=== PATIENT | female | born 1950 | race Caucasian/White ===

== ENCOUNTER 2018-02-05 07:50 | Emergency (ER) | payer MEDICARE, MEDICAID ==
[~2018-02-05] VITALS: Wt 81.6 kg
[~2018-02-05 07:50] MED LIST: ANTIVERT25 MG PO; BACTRIM DS 8001 TA1 PO; CIPROFLOXACIN500 MG PO; CYCLOBENZAPRINE10 MG PO; ELAVIL75 MG; INSULIN-HUMA100 U/ML SC; LISINOPRIL10 MG PO; LISINOPRIL5 MG PO; LOSARTAN POTASS50 MG PO; NAPROSYN500 MG PO; PERCOCET 325 MG1 TA7 PO; PROTONIX40 MG PO; PYRIDIUM200 MG PO; ZOFRAN ODT4 MG PO
[2018-02-05] MEDS ORDERED: PREDNISONE20 M1 PO (08:25)
== END 2018-02-05 08:36 | disposition home or self-care (01) ==
LOC: ED 07:50
DX: L25.9 Unspecified contact dermatitis, unspecified cause (principal); E11.9 Type 2 diabetes mellitus without complications; Z90.49 Acquired absence of other specified parts of digestive tract; Z79.899 Other long term (current) drug therapy

== ENCOUNTER 2019-05-15 11:53 | Inpatient (IN) | payer MEDICARE, MEDICAID ==
[~2019-05-15] VITALS: Ht 162.5 cm; Wt 89.2 kg
[~2019-05-15 11:53] MED LIST changes: +PREDNISONE20 M1 PO
[2019-05-15 11:54] VITALS: BP 152/66
[2019-05-15 12:21] LABS: BASO % 0.2 % (0.0-1.0); HEMATOCRIT 39.6 % (37.0-47.0); HEMOGLOBIN 13.2 g/dl (12.0-16.0); LYMPH # 1.9 10*3/uL (1.3-4.4); LYMPH % 22.9 % (27.0-41.0); MEAN CELL VOLUME 84.1 fl (81.0-99.0); MEAN CORPUSCULAR HGB CONC 33.3 g/dl (33.0-37.0); MEAN PLATELET VOLUME 9.3 fl (9.6-12.3); MONO # 0.5 10*3/uL (0.1-1.0); MONO % 6.4 % (3.0-9.0); NEUT # 5.8 10*3/uL (2.3-7.9); PLATELET COUNT AUTOMATED 247 10*3/uL (130-400); RED BLOOD COUNT 4.71 10*6/uL (4.10-5.10); RED CELL DISTRI WIDTH 13.8 % (0-14.5); WHITE BLOOD COUNT 8.3 10*3/uL (4.8-10.8)
[2019-05-15 12:35] LABS: ACT PARTIAL THROMBO TIME 26.1 SECONDS (20.0-32.1); INTERNATIONAL NORM RATIO 0.9 (2.0-3.5)
[2019-05-15 12:40] LABS: ALBUMIN 3.6 gm/dl (3.1-4.5); ALKALINE PHOSPHATASE 110 U/L (45-117); BUN 18 mg/dl (7-24); CHLORIDE 105 mmol/L (98-107); CREATININE 1.02 mg/dL (0.55-1.02); POTASSIUM 4.8 mmol/L (3.5-5.1); SGOT/AST 37 IU/L (3-35); SGPT/ALT 40 U/L (12-78); SODIUM 136 mmol/L (136-145); TOTAL PROTEIN 7.4 gm/dL (6.4-8.2)
[2019-05-15 12:42] LABS: TROPONIN I < 0.015 ng/ml (<0.045)
[2019-05-15 16:19] VITALS: BP 122/57
--- NOTE | 2019-05-15 17:15 | NUR ---
BEDSIDE REPORT GIVEN TO GALLITO ORANTES AT THIS TIME. NO PATIENT STATUS CHANGE.
[2019-05-15] MEDS ORDERED: GOOD NEIGHBOR M25 MG PO (17:29)
[2019-05-15] MEDS ORDERED: PROZAC20 MG PO (17:30)
[2019-05-15] MEDS ORDERED: NEURONTIN300 MG PO (17:31)
[2019-05-15] MEDS ORDERED: OMEPRAZOLE MAGN20 MG PO (17:31)
[2019-05-15] MEDS ORDERED: LANTUS SOL100 UNIT/1 SQ ×2 (17:32)
--- NOTE | 2019-05-15 17:33 | NUR ---
CCA 69, admitted to 5E, under the services of ARCHANA Hackett DO with a diagnosis of SYNCOPE, CHEST PAIN. Chief complaint is SYNCOPE. Patient arrived via bed from ER. Monitor applied. Initial assessment completed. Vital signs taken and recorded. ARCHANA HACKETT DO notified of admission to the unit. Orders received. See assessment for past medical history, medications and allergies. Patient and/or family oriented to unit. [address] visitation policy reviewed. Clothing/patient valuable form completed. GALLITO HAYDEN
--- NOTE | 2019-05-15 17:34 | NUR ---
MEDS REVIEWED PER POLICY.
--- NOTE | 2019-05-15 17:47 | NUR ---
2 WOUND PHOTOS OBTAINED PER POLICY.
--- NOTE | 2019-05-15 17:59 | NUR ---
NOTIFIED REGARDING SKIN IMPAIRMENTS.
--- NOTE | 2019-05-15 18:40 | NUR ---
ORTHOS PERFORMED PER ORDER. LAYING BP 133/56. PULSE 87. SITTING BP 149/63. PULSE 89. STANDING BP 98/50. PULSE 89. PT SYMPTOMATIC.
--- NOTE | 2019-05-15 18:44 | NUR ---
NOTIFIED REGARDING POSITIVE ORTHOS
[2019-05-15 20:00] VITALS: BP 133/49
--- NOTE | 2019-05-15 22:00 | NUR ---
PRN NORCO ADMINISTERED PRESCRIBED FOR PT C/O HEADACHE RATED A 5/10 ON THE PAIN SCALE. WILL CONTINUE TO MONITOR AND REASSESS. NO OTHER COMPLAINTS AT THIS TIME. CALL LIGHT IN REACH.
--- NOTE | 2019-05-15 22:01 | NUR ---
FLU VACCINE ADMINISTERED.
--- NOTE | 2019-05-15 23:00 | NUR ---
PT STATES THAT THE NORCO WAS EFFECTIVE. WILL CONTINUE TO MONITOR.
[2019-05-16] VITALS: BP 134/64
[2019-05-16 00:28] LABS: BILIRUBIN NEGATIVE (NEGATIVE); BLOOD NEGATIVE (NEGATIVE); CLARITY CLEAR (CLEAR); COLOR YELLOW (YELLOW); GLUCOSE 2+ (NEGATIVE); KETONE NEGATIVE (NEGATIVE); LEUKO ESTERASE TRACE (NEGATIVE); NITRITE NEGATIVE (NEGATIVE); PH 5.5 (5.0-9.0); SPECIFIC GRAVITY 1.025 (1.005-1.030); UROBILINOGEN 0.2 E.U./dl (0.2-1.0)
--- NOTE | 2019-05-16 01:00 | NUR ---
24 HOUR CHART CHECK COMPLETE.
[2019-05-16 01:14] LABS: BACTERIA TRACE
--- NOTE | 2019-05-16 02:04 | NUR ---
PRN NORCO ADMINISTERED PRESCRIBED FOR PT C/O "RT SIDED SHOULDER PAIN". PATIENT REFUSES ANY CHEST PAIN OR SOB ASSOCIATED WITH THE PAIN AND STATES THAT IT IS "PROBABLY HER ROTATOR CUFF". WILL CONTINUE TO MONITOR AND REASSESS. CALL LIGHT IN REACH.
--- NOTE | 2019-05-16 02:42 | NUR ---
PT STATES THAT THE PAIN "IS BETTER NOW" AFTER NORCO ADMINISTRATION. WILL CONTINUE TO MONITOR.
--- NOTE | 2019-05-16 05:12 | NUR ---
SAÚL PEREYRA [id number] Please refer to the physician's history and physical for past medical history, comorbid conditions, and allergies. Diagnosis: SYNCOPE HEAD INJURY CHEST PAIN Estevan Score: 17,AT RISK WOUND DESCRIPTIONS: Wound Number: 1 Location of the wound: left elbow Type of wound: scab Thickness: Partial Size: 1.1cm x 0.5cm x <0.1cm Tunneling: none Undermining: none Sinus Tract: none Presence of Exudate: none Amount: None Color: Red, brown Odor: None Periwound Skin Appearance: Normal Wound edges: approximated Pain (associated with wound): none at time of assessment How does patient state this happened? pt stated she fell yesterday and she will care for these areas when she is discharged and doesn't want to follow up in the outpatient center Wound Number: 2 Location of the wound: right elbow Type of wound: skin tear Thickness: Partial Size: 2.8cm x 0.6cm x 0.1cm Tunneling: none Undermining: none Sinus Tract: none Presence of Exudate: Serous Amount: Light Color: Red Odor: None Periwound Skin Appearance: Normal Wound edges: approximated Pain (associated with wound): none at time of assessment How does patient state this happened? pt stated she fell yesterday and she will care for these areas when she is discharged and doesn't want to follow up in the outpatient center Surface the patient is resting on: Position Pro SKIN PREVENTION RECOMMENDATION: 1. Pressure redistribution support surface as appropriate 2. Elevate heels 3. Remove boots/TEDS every shift and reapply 4. Head of bed 30 degrees as tolerated 5. Assess nutrition and hydration 6. Manage moisture 7. Avoid the use of containment devices while in bed 8. Use absorptive products on surfaces limit layers of linens on bed 9. Turn and reposition every 1-2 hours in bed and every 1 hour in chair as tolerated 10. Weight shifts every 15 minutes while up in chair 11. Offloading with pillows or device to keep heels elevated off bed 12. Monitor skin at least every shift 13. Inspect under medical devices twice a day WOUND TREATMENT RECOMMENDATIONS: Clarify skin tear guidelines: Cleanse left and right elbow with nss and apply sureprep around the wound hydrogel to wound bed and cover with optifoam gentle Q2days and prn.
[2019-05-16 06:41] LABS: BASO % 0.1 % (0.0-1.0); EOS % 0.1 % (1.0-4.0); HEMATOCRIT 35.7 % (37.0-47.0); HEMOGLOBIN 11.5 g/dl (12.0-16.0); LYMPH # 2.6 10*3/uL (1.3-4.4); LYMPH % 34.8 % (27.0-41.0); MEAN CORPUSCULAR HGB 27.7 pg (27.0-31.0); MEAN CORPUSCULAR HGB CONC 32.2 g/dl (33.0-37.0); MEAN PLATELET VOLUME 9.1 fl (9.6-12.3); MONO # 0.5 10*3/uL (0.1-1.0); MONO % 6.8 % (3.0-9.0); NEUT # 4.2 10*3/uL (2.3-7.9); NEUT % 57.8 % (47.0-73.0); PLATELET COUNT AUTOMATED 217 10*3/uL (130-400); RED BLOOD COUNT 4.15 10*6/uL (4.10-5.10); RED CELL DISTRI WIDTH 14.1 % (0-14.5); WHITE BLOOD COUNT 7.3 10*3/uL (4.8-10.8)
[2019-05-16 06:57] LABS: BUN 17 mg/dl (7-24); CHLORIDE 108 mmol/L (98-107); CHOLESTEROL 200 mg/dL (<200); CREATININE 1.05 mg/dL (0.55-1.02); PHOSPHOROUS 4.8 mg/dL (2.5-4.9); POTASSIUM 3.9 mmol/L (3.5-5.1); SODIUM 141 mmol/L (136-145); TRIGLYCERIDES 323 mg/dl (<150); VLDL CHOLESTEROL 65 mg/dL (6-40)
[2019-05-16 07:11] LABS: HDL CHOLESTEROL 25 mg/dl (40-60); LDL CHOLESTEROL 110 mg/dL (9-159)
[2019-05-16 08:00] VITALS: BP 128/52
--- NOTE | 2019-05-16 09:11 | NUR ---
ORTHOS PERFORMED PER ORDER. LAYING BP 128/52. HR 72. SITTING BP 132/62. HR 85. STANDING BP 110/51. HR 85. PT C/O DIZZINESS UPON STANDING. WILL NOTIFY PHYSICIAN.
--- NOTE | 2019-05-16 09:34 | NUR ---
PT MEDICATED WITH NORCO PER PRN ORDER FOR C/O BACK PAIN. CHRONIC BACK PAIN PER PT. WILL MONITOR EFFECTIVENESS.
--- NOTE | 2019-05-16 10:03 | NUR ---
Dr. Westbrook notified of wound care recommendations.
--- NOTE | 2019-05-16 10:10 | NUR ---
Occupational THerapy evaluation offered this date but patient declined stating that she is independent in all ADLs and functional mobility and did not need any therapy. Discharge OT referral. Thank you. Carley Ignacio OTR/Helder
--- NOTE | 2019-05-16 10:39 | NUR ---
PHYSICAL THERAPY Physical therapy referral received. Pt reports she is independent with ambulation in room and has no concerns upon going home. PT services will be discharged at this time. Thank you Yanna Rodriguez, PT, DPT
--- NOTE | 2019-05-16 10:44 | NUR ---
BRIGITTE RELIEVING PAIN PER PT.
--- NOTE | 2019-05-16 10:45 | NUR ---
DAUGHTER AT BEDSIDE.
[2019-05-16 12:00] VITALS: BP 111/74
--- NOTE | 2019-05-16 13:12 | NUR ---
Flap Curer in to talk to patient. Patient states lives at HOME with BROTHER. There are FEW steps in the home. Physician: IGNACIO Pharmacy: [facility] Home health services: NONE Patient's level of ADLs: INDEPENDENT Patient has working utilities: YES DME: NONE Follow-up physician's appointment after d/c: WILL BE MADE BY HOSPITALIST NURSE DIRECTOR ON DISCHARGE Does patient want to access PORTAL?: NO Discharge plan PT LIVES AT HOME WITH HER BROTHER. DENIES SHE WILL HAVE NEEDS ON DISCHARGE. STATES SHE WILL RETURN HOME. WILL CONTINUE TO FOLLOW. WILL HAVE A RIDE HOME PER PT.. GALE SILVA
[2019-05-16 16:00] VITALS: BP 121/52
[2019-05-16 20:00] VITALS: BP 145/55
[2019-05-17] VITALS: BP 155/61
[2019-05-17 07:00] LABS: CREATININE 1.09 mg/dL (0.55-1.02); POTASSIUM 4.5 mmol/L (3.5-5.1)
--- NOTE | 2019-05-17 08:28 | NUR ---
Dr. Westbrook notified of wound care recommendations.
--- NOTE | 2019-05-17 08:57 | NUR ---
CHIQUITA spoke with the patient and family about wanting a blood pressure cuff and a glucometer. CHIQUITA reached out to Pharmacy and spoke with Dawson. He stated if the patient was ordered a diabetic education they would be able to provide one to her with not cost to the patient. Dawson also stated that a blood pressure kit would approximately be $12.00. CHIQUITA informed the patient of this. CHIQUITA reached out to RN Hospitalist Coordinator to see if a diabetic education could be ordered. CHIQUITA also notified immigration case manager Ambar. -CHIQUITA Ruth
--- NOTE | 2019-05-17 10:00 | NUR ---
Physicians notified face to face encounter of orthostatic blood pressures. See vitals. See new orders.
--- NOTE | 2019-05-17 10:50 | NUR ---
Patient was educated on how to test her blood glucose. Patient followed steps as directed and was educated on importance of monitoring glucose levels.
[2019-05-17] MEDS ORDERED: Humalog SQ (11:15)
[2019-05-17] MEDS ORDERED: GLUCOPHAGE500 MG PO (11:15)
[2019-05-17] MEDS ORDERED: VITAMIN D32000 UNI1 PO (11:15)
[2019-05-17] MEDS ORDERED: ATORVASTATIN CA20 M1 PO (11:15)
--- NOTE | 2019-05-17 11:57 | NUR ---
Nutritional Support Services Note: Instructed pt and pts daughter on 1800cal diabetic diet. Diet copy given to pt. All questions were answered. Encouraged three meals daily and a night snack. Encouraged healhty eating and proper portion sizes. Encouraged her to attend the outpatient diabetes classes. Pts daughter is also a diabetic. Encouraged follow up if needed. Jazmyn Torres Rdn Ld
[2019-05-17 12:00] VITALS: BP 148/86
--- NOTE | 2019-05-17 14:50 | NUR ---
Discharge instructions reviewed with patient/family. Patient receptive and verbalizes understanding. Follow-up care arranged. Written instructions given to patient/family. Patient was educated on insulin and the sliding scale. She was also educated on how to monitor her blood sugar and follow up visit with Dr. Hawthorne. Patient ambulated from unit with family member and all personal belongings accounted for. TEJA COLLINS
== END 2019-05-17 14:50 | disposition home or self-care (01) | DRG 312 ==
LOC: ED 11:53 → EDHOLD 16:34 → 5E 16:34
PROVIDERS: Emergency Medicine; Student in an Organized Health Care Education/Training Program; ADMIT Family Medicine
DX: I95.1 Orthostatic hypotension (principal); E86.0 Dehydration; S09.90XA Unspecified injury of head, initial encounter; F41.9 Anxiety disorder, unspecified; I10 Essential (primary) hypertension; E11.65 Type 2 diabetes mellitus with hyperglycemia; E83.41 Hypermagnesemia; D72.810 Lymphocytopenia; K21.9 Gastro-esophageal reflux disease without esophagitis; E11.42 Type 2 diabetes mellitus with diabetic polyneuropathy; Z85.42 Personal history of malignant neoplasm of other parts of uterus; Z90.710 Acquired absence of both cervix and uterus; Z90.49 Acquired absence of other specified parts of digestive tract; Z79.4 Long term (current) use of insulin; Z79.899 Other long term (current) drug therapy; Z83.3 Family history of diabetes mellitus; Z82.49 Family history of ischemic heart disease and other diseases of the circulatory system; W18.39XA Other fall on same level, initial encounter; Y93.89 Activity, other specified; Y92.090 Kitchen in other non-institutional residence as the place of occurrence of the external cause; Y99.8 Other external cause status

== ENCOUNTER → 2019-08-20 | Outpatient (CLI) | payer MEDICARE, MEDICAID ==
[~2019-08-20] MED LIST changes: +ATORVASTATIN CA20 M1 PO; +COZAAR50 M1 PO; +GLUCOPHAGE500 MG PO; +GOOD NEIGHBOR M25 MG PO; +Humalog SQ; +LANTUS SOL100 UNIT/1 SQ; +NEURONTIN300 MG PO; +OMEPRAZOLE MAGN20 MG PO; +PROZAC20 MG PO; +VIBRA-TAB100 MG PO; +VITAMIN D32000 UNI1 PO
--- NOTE | 2019-08-20 07:05 | NUR ---
INFORMED CONSENT SIGNED FOR LEXISCAN STRESS TEST WITH DR. RIZZO. RESTING EKG NSR, HR 76, BP 126/56. PULSE OX 99% AND LUNGS CLEAR. COMPLETED ONE MINUTE OF LEXISCAN PROTOCOL RECEIVING LEXISCAN 0.4MG OVER 10 SECONDS. NO ARRHYTHMIAS OR ST CHANGES NOTED. PT HAD NO C/O. LAST RECOVERY HR 89, BP 108/40. WAITING NUCLEAR SCANNING IN STABLE CONDITION.
== END | disposition home or self-care (01) ==
LOC: CARD 00:23
DX: R07.9 Chest pain, unspecified (principal)

== ENCOUNTER 2021-06-30 05:38 | Inpatient (IN) | payer MEDICARE, MEDICAID ==
[~2021-06-30] VITALS: Ht 165.1 cm; Wt 91.9 kg
[2021-06-30 05:38] VITALS: BP 158/70
[2021-06-30 06:28] LABS: BASO % 0.2 % (0.0-1.0); HEMATOCRIT 36.7 % (37.0-47.0); LYMPH # 1.9 10*3/uL (1.3-4.4); LYMPH % 30.2 % (27.0-41.0); MEAN CELL VOLUME 96.8 fl (81.0-99.0); MEAN CORPUSCULAR HGB 31.9 pg (27.0-31.0); MONO # 0.5 10*3/uL (0.1-1.0); MONO % 7.3 % (3.0-9.0); NEUT # 3.9 10*3/uL (2.3-7.9); NEUT % 61.7 % (47.0-73.0); PLATELET COUNT AUTOMATED 227 10*3/uL (130-400); RED BLOOD COUNT 3.79 10*6/uL (4.10-5.10); RED CELL DISTRI WIDTH 13.4 % (0-14.5); WHITE BLOOD COUNT 6.3 10*3/uL (4.8-10.8)
[2021-06-30 06:39] LABS: ACT PARTIAL THROMBO TIME 26.3 SECONDS (20.0-32.1); INTERNATIONAL NORM RATIO 0.9 (2.0-3.5)
[2021-06-30 06:42] LABS: ALBUMIN 3.1 gm/dl (3.1-4.5); ALKALINE PHOSPHATASE 87 U/L (45-117); BUN 16 mg/dl (7-24); CHLORIDE 110 mmol/L (98-107); CREATININE 0.95 mg/dL (0.55-1.02); POTASSIUM 3.8 mmol/L (3.5-5.1); SGOT/AST 25 IU/L (3-35); SGPT/ALT 28 U/L (12-78); SODIUM 141 mmol/L (136-145); TOTAL PROTEIN 6.7 gm/dL (6.4-8.2)
[2021-06-30 07:44] VITALS: BP 165/76
[2021-06-30] MEDS ORDERED: BASAG SOL SC (09:18)
[2021-06-30 12:00] VITALS: BP 188/82
[2021-06-30 17:57] VITALS: BP 193/71
[2021-06-30 19:39] VITALS: BP 182/74
[2021-06-30 20:00] VITALS: BP 180/78
[2021-07-01] VITALS: BP 157/82
[2021-07-01 05:49] LABS: ALBUMIN 2.9 gm/dl (3.1-4.5); ALKALINE PHOSPHATASE 82 U/L (45-117); BUN 18 mg/dl (7-24); CHLORIDE 109 mmol/L (98-107); CREATININE 1.06 mg/dL (0.55-1.02); POTASSIUM 4.3 mmol/L (3.5-5.1); SGOT/AST 19 IU/L (3-35); SGPT/ALT 28 U/L (12-78); SODIUM 140 mmol/L (136-145); TOTAL PROTEIN 6.4 gm/dL (6.4-8.2)
[2021-07-01 06:14] LABS: BASO % 0.1 % (0.0-1.0); HEMATOCRIT 35.2 % (37.0-47.0); LYMPH # 1.4 10*3/uL (1.3-4.4); LYMPH % 15.1 % (27.0-41.0); MEAN CELL VOLUME 95.9 fl (81.0-99.0); MEAN CORPUSCULAR HGB 31.9 pg (27.0-31.0); MEAN CORPUSCULAR HGB CONC 33.2 g/dl (33.0-37.0); MEAN PLATELET VOLUME 9.5 fl (9.6-12.3); MONO # 0.6 10*3/uL (0.1-1.0); MONO % 7.1 % (3.0-9.0); NEUT % 76.9 % (47.0-73.0); PLATELET COUNT AUTOMATED 256 10*3/uL (130-400); RED BLOOD COUNT 3.67 10*6/uL (4.10-5.10); RED CELL DISTRI WIDTH 13.3 % (0-14.5); WHITE BLOOD COUNT 9.1 10*3/uL (4.8-10.8)
[2021-07-01 08:00] VITALS: BP 168/60
[2021-07-01] MEDS ORDERED: ZITHROMAX250 MG PO (11:55)
[2021-07-01] MEDS ORDERED: HUMALOG100 UNIT/1 SC (11:58)
[2021-07-01] MEDS ORDERED: CARAFATE1 G1 PO (12:34)
[2021-07-01] MEDS ORDERED: PROTONIX40 MG PO (12:34)
== END 2021-07-01 14:35 | disposition home or self-care (01) | DRG 871 ==
LOC: ED 05:38 → EDHOLD 08:20 → 4E 19:52
PROVIDERS: Emergency Medicine; Student in an Organized Health Care Education/Training Program; ADMIT Internal Medicine; ATTEND Internal Medicine
DX: A41.9 Sepsis, unspecified organism (principal); J18.9 Pneumonia, unspecified organism; E44.0 Moderate protein-calorie malnutrition; I13.0 Hypertensive heart and chronic kidney disease with heart failure and stage 1 through stage 4 chronic kidney disease, or unspecified chronic kidney disease; K21.9 Gastro-esophageal reflux disease without esophagitis; K29.70 Gastritis, unspecified, without bleeding; Z20.822 Contact with and (suspected) exposure to COVID-19; I16.0 Hypertensive urgency; E87.8 Other disorders of electrolyte and fluid balance, not elsewhere classified; E66.3 Overweight; N18.31 Chronic kidney disease, stage 3a; D72.810 Lymphocytopenia; C55 Malignant neoplasm of uterus, part unspecified; F41.9 Anxiety disorder, unspecified; E11.65 Type 2 diabetes mellitus with hyperglycemia; E11.42 Type 2 diabetes mellitus with diabetic polyneuropathy; Z79.4 Long term (current) use of insulin; Z90.49 Acquired absence of other specified parts of digestive tract; Z90.710 Acquired absence of both cervix and uterus; Z82.49 Family history of ischemic heart disease and other diseases of the circulatory system; Z83.3 Family history of diabetes mellitus; Z79.899 Other long term (current) drug therapy; Z68.34 Body mass index [BMI] 34.0-34.9, adult

== ENCOUNTER 2022-01-04 13:36 | Inpatient (IN) | payer MEDICARE, MEDICAID ==
[~2022-01-04] VITALS: Ht 152.4 cm; Wt 85.3 kg
[~2022-01-04 13:36] MED LIST changes: +ASPIRIN ADULT L81 M2 PO; +ATORVASTATIN CA80 M1 PO; +BASAG SOL SC; +CARAFATE1 G1 PO; +HUMALOG100 UNIT/1 SC; +LOPRESSOR25 MG PO; +ZITHROMAX250 MG PO
[2022-01-04 13:51] VITALS: BP 108/57
[2022-01-04 14:12] LABS: EOS % 0.2 % (1.0-4.0); HEMATOCRIT 28.5 % (37.0-47.0); LYMPH % 20.2 % (27.0-41.0); MEAN CELL VOLUME 86.1 fl (81.0-99.0); MEAN CORPUSCULAR HGB 27.8 pg (27.0-31.0); MEAN CORPUSCULAR HGB CONC 32.3 g/dl (33.0-37.0); MEAN PLATELET VOLUME 8.4 fl (9.6-12.3); MONO # 0.4 10*3/uL (0.1-1.0); MONO % 7.6 % (3.0-9.0); NEUT # 3.7 10*3/uL (2.3-7.9); NEUT % 71.6 % (47.0-73.0); PLATELET COUNT AUTOMATED 240 10*3/uL (130-400); RED BLOOD COUNT 3.31 10*6/uL (4.10-5.10); RED CELL DISTRI WIDTH 14.7 % (0-14.5); WHITE BLOOD COUNT 5.1 10*3/uL (4.8-10.8)
[2022-01-04 14:22] VITALS: BP 109/56
[2022-01-04 14:23] LABS: ACT PARTIAL THROMBO TIME 27.4 SECONDS (20.0-32.1)
[2022-01-04 14:28] LABS: CREATININE 2.1 mg/dL (0.55-1.02); POTASSIUM 4.2 mmol/L (3.5-5.1); TOTAL PROTEIN 7.1 gm/dL (6.4-8.2)
[2022-01-04 16:00] VITALS: BP 124/61
[2022-01-04 17:00] VITALS: BP 124/61
[2022-01-04 20:00] VITALS: BP 122/56
[2022-01-04] MEDS ORDERED: VITAMIN C500 M8 PO (20:44)
[2022-01-04] MEDS ORDERED: BUMETANIDE2 MG PO (20:44)
[2022-01-04] MEDS ORDERED: PLAVIX75 M1 PO (20:45)
[2022-01-04] MEDS ORDERED: COLACE100 MG PO (20:45)
[2022-01-04] MEDS ORDERED: IRON325 M3 PO (20:47)
[2022-01-04] MEDS ORDERED: HYDRALAZINE10 MG PO (20:47)
[2022-01-04] MEDS ORDERED: POTASSIUM99 M3 PO (20:48)
[2022-01-04] MEDS ORDERED: NATURE'S BLEND F1 MG PO (20:48)
[2022-01-04] MEDS ORDERED: BASAG SOL SQ (21:00)
[2022-01-04] MEDS ORDERED: LIPITOR40 MG PO (21:00)
[2022-01-05] VITALS: BP 124/54
[2022-01-05 02:20] LABS: BILIRUBIN Negative (Negative); BLOOD Negative (Negative); CLARITY Clear (Clear); COLOR Yellow (Yellow); GLUCOSE Negative (Negative); KETONE Negative (Negative); LEUKO ESTERASE 2+ (Negative); NITRITE Negative (Negative); UROBILINOGEN 0.2 E.U./dl (0.0-1.0)
[2022-01-05 02:40] LABS: EPITHELIAL CELLS 21-30; WBC 21-30 wbc/hpf (0-5); YEAST TRACE
[2022-01-05 05:58] LABS: CREATININE 2.2 mg/dL (0.55-1.02); TOTAL PROTEIN 6.4 gm/dL (6.4-8.2)
[2022-01-05 06:05] LABS: FREE T4 0.99 ng/dl (0.76-1.46); THYROID STIM HORMONE (HS) 3.12 uIU/ml (0.358-4.75)
[2022-01-05 06:31] LABS: BASO % 0.2 % (0.0-1.0); EOS % 0.2 % (1.0-4.0); HEMATOCRIT 25.5 % (37.0-47.0); LYMPH # 1.3 10*3/uL (1.3-4.4); LYMPH % 28.3 % (27.0-41.0); MEAN CELL VOLUME 88.2 fl (81.0-99.0); MEAN CORPUSCULAR HGB 28.4 pg (27.0-31.0); MEAN CORPUSCULAR HGB CONC 32.2 g/dl (33.0-37.0); MEAN PLATELET VOLUME 9.4 fl (9.6-12.3); MONO # 0.4 10*3/uL (0.1-1.0); MONO % 9.5 % (3.0-9.0); NEUT # 2.8 10*3/uL (2.3-7.9); NEUT % 61.4 % (47.0-73.0); PLATELET COUNT AUTOMATED 230 10*3/uL (130-400); RED BLOOD COUNT 2.89 10*6/uL (4.10-5.10); RED CELL DISTRI WIDTH 14.7 % (0-14.5); WHITE BLOOD COUNT 4.5 10*3/uL (4.8-10.8)
[2022-01-05 06:37] LABS: ACT PARTIAL THROMBO TIME 27.2 SECONDS (20.0-32.1)
[2022-01-05 08:00] VITALS: BP 120/53
[2022-01-05 12:00] VITALS: BP 120/80
[2022-01-05 16:20] VITALS: BP 100/46
[2022-01-05 20:00] VITALS: BP 110/50
[2022-01-06] VITALS (9 sets, daily range): BP systolic 85–138; BP diastolic 37–60
[2022-01-06 06:01] LABS: CREATININE 2.36 mg/dL (0.55-1.02); POTASSIUM 4.2 mmol/L (3.5-5.1); TOTAL PROTEIN 6.1 gm/dL (6.4-8.2)
[2022-01-06 06:04] LABS: BASO % 0.2 % (0.0-1.0); HEMATOCRIT 24.8 % (37.0-47.0); LYMPH # 1.3 10*3/uL (1.3-4.4); LYMPH % 28.2 % (27.0-41.0); MEAN CELL VOLUME 87.6 fl (81.0-99.0); MEAN CORPUSCULAR HGB 27.6 pg (27.0-31.0); MEAN CORPUSCULAR HGB CONC 31.5 g/dl (33.0-37.0); MONO # 0.5 10*3/uL (0.1-1.0); MONO % 10.2 % (3.0-9.0); NEUT # 2.8 10*3/uL (2.3-7.9); NEUT % 61.2 % (47.0-73.0); PLATELET COUNT AUTOMATED 223 10*3/uL (130-400); RED BLOOD COUNT 2.83 10*6/uL (4.10-5.10); RED CELL DISTRI WIDTH 14.8 % (0-14.5); WHITE BLOOD COUNT 4.6 10*3/uL (4.8-10.8)
[2022-01-07] VITALS: BP 105/64
[2022-01-07 06:30] LABS: BASO % 0.2 % (0.0-1.0); EOS % 0.2 % (1.0-4.0); HEMATOCRIT 26.6 % (37.0-47.0); LYMPH # 1.5 10*3/uL (1.3-4.4); MEAN CELL VOLUME 88.7 fl (81.0-99.0); MEAN CORPUSCULAR HGB 27.3 pg (27.0-31.0); MEAN CORPUSCULAR HGB CONC 30.8 g/dl (33.0-37.0); MEAN PLATELET VOLUME 9.1 fl (9.6-12.3); MONO # 0.5 10*3/uL (0.1-1.0); MONO % 8.8 % (3.0-9.0); NEUT # 3.2 10*3/uL (2.3-7.9); NEUT % 61.4 % (47.0-73.0); PLATELET COUNT AUTOMATED 259 10*3/uL (130-400); RED CELL DISTRI WIDTH 14.8 % (0-14.5); WHITE BLOOD COUNT 5.2 10*3/uL (4.8-10.8)
[2022-01-07 07:03] LABS: CREATININE 2.36 mg/dL (0.55-1.02)
[2022-01-07 08:00] VITALS: BP 125/55
[2022-01-07 12:00] VITALS: BP 116/53
[2022-01-07 16:00] VITALS: BP 129/65
[2022-01-07 20:00] VITALS: BP 116/62
[2022-01-08] VITALS: BP 115/60
[2022-01-08 06:32] VITALS: BP 120/52
[2022-01-08 06:41] LABS: BASO % 0.2 % (0.0-1.0); EOS % 0.2 % (1.0-4.0); HEMATOCRIT 24.7 % (37.0-47.0); LYMPH # 1.5 10*3/uL (1.3-4.4); LYMPH % 30.2 % (27.0-41.0); MEAN CORPUSCULAR HGB 27.5 pg (27.0-31.0); MEAN CORPUSCULAR HGB CONC 31.6 g/dl (33.0-37.0); MEAN PLATELET VOLUME 8.8 fl (9.6-12.3); MONO # 0.5 10*3/uL (0.1-1.0); MONO % 10.4 % (3.0-9.0); NEUT # 2.8 10*3/uL (2.3-7.9); NEUT % 58.8 % (47.0-73.0); PLATELET COUNT AUTOMATED 230 10*3/uL (130-400); RED BLOOD COUNT 2.84 10*6/uL (4.10-5.10); RED CELL DISTRI WIDTH 14.7 % (0-14.5); WHITE BLOOD COUNT 4.8 10*3/uL (4.8-10.8)
[2022-01-08 07:10] LABS: POTASSIUM 4.2 mmol/L (3.5-5.1)
[2022-01-08 07:13] LABS: CREATININE 2.2 mg/dL (0.55-1.02)
[2022-01-08 08:00] VITALS: BP 117/57
[2022-01-08 12:00] VITALS: BP 107/52
[2022-01-08] MEDS ORDERED: CARVEDILOL3.125 MG PO (12:02)
[2022-01-08] MEDS ORDERED: BUMETANIDE1 MG PO (12:02)
[2022-01-08] MEDS ORDERED: CEFUROXIME AXE500 MG PO (12:02)
[2022-01-08] MEDS ORDERED: VITAMIN D350 MC2 PO (12:02)
[2022-01-08 15:07] LABS: TB1 Ag VALUE 0.03 IU/mL (.)
== END 2022-01-08 12:21 | disposition home health service (06) | DRG 862 ==
LOC: ED 13:36 → 5E 15:36 → EDHOLD 15:36 → 5E 15:57
PROVIDERS: Emergency Medicine; Family Medicine; Internal Medicine; Internal Medicine Infectious Disease; ADMIT Internal Medicine; ATTEND Internal Medicine
PROC: 069 Lower Veins, Drainage (ICD-10-PCS; principal; 2022-01-06)
DX: T81.49XA Infection following a procedure, other surgical site, initial encounter (principal); N17.0 Acute kidney failure with tubular necrosis; L03.116 Cellulitis of left lower limb; S81.802A Unspecified open wound, left lower leg, initial encounter; I25.118 Atherosclerotic heart disease of native coronary artery with other forms of angina pectoris; D64.9 Anemia, unspecified; I25.5 Ischemic cardiomyopathy; N18.30 Chronic kidney disease, stage 3 unspecified; E11.22 Type 2 diabetes mellitus with diabetic chronic kidney disease; R55 Syncope and collapse; Z51.5 Encounter for palliative care; Y83.8 Other surgical procedures as the cause of abnormal reaction of the patient, or of later complication, without mention of misadventure at the time of the procedure; Z66 Do not resuscitate; E66.9 Obesity, unspecified; E87.8 Other disorders of electrolyte and fluid balance, not elsewhere classified; E83.41 Hypermagnesemia; B96.20 Unspecified Escherichia coli [E. coli] as the cause of diseases classified elsewhere; Z90.49 Acquired absence of other specified parts of digestive tract; Z79.4 Long term (current) use of insulin; Z95.1 Presence of aortocoronary bypass graft; Z90.710 Acquired absence of both cervix and uterus; Z79.82 Long term (current) use of aspirin; Z79.899 Other long term (current) drug therapy; Y92.89 Other specified places as the place of occurrence of the external cause; Z82.49 Family history of ischemic heart disease and other diseases of the circulatory system; Z68.35 Body mass index [BMI] 35.0-35.9, adult; I50.9 Heart failure, unspecified

== ENCOUNTER → 2022-01-18 | Outpatient (CLI) | payer MEDICARE, MEDICAID ==
[~2022-01-18] MED LIST changes: +BASAG SOL SQ; +BUMETANIDE1 MG PO; +BUMETANIDE2 MG PO; +CARVEDILOL3.125 MG PO; +CEFUROXIME AXE500 MG PO; +COLACE100 MG PO; +HYDRALAZINE10 MG PO; +IRON325 M3 PO; +LIPITOR40 MG PO; +NATURE'S BLEND F1 MG PO; +PLAVIX75 M1 PO; +POTASSIUM99 M3 PO; +VITAMIN C500 M8 PO; +VITAMIN D350 MC2 PO
== END | disposition home or self-care (01) ==
LOC: WOUNDCARE 01:36
PROVIDERS: ATTEND Surgery
DX: T81.89XA Other complications of procedures, not elsewhere classified, initial encounter (principal); M65.062 Abscess of tendon sheath, left lower leg; L03.116 Cellulitis of left lower limb; E11.9 Type 2 diabetes mellitus without complications; I25.10 Atherosclerotic heart disease of native coronary artery without angina pectoris; I25.2 Old myocardial infarction; I10 Essential (primary) hypertension; F41.9 Anxiety disorder, unspecified; Z90.710 Acquired absence of both cervix and uterus; Z90.49 Acquired absence of other specified parts of digestive tract; Z95.1 Presence of aortocoronary bypass graft; Z85.42 Personal history of malignant neoplasm of other parts of uterus; Y92.238 Other place in hospital as the place of occurrence of the external cause; Y83.8 Other surgical procedures as the cause of abnormal reaction of the patient, or of later complication, without mention of misadventure at the time of the procedure

== ENCOUNTER → 2022-01-25 | Outpatient (CLI) | payer MEDICARE, MEDICAID | LOC: WOUNDCARE 01:42 | PROVIDERS: ATTEND Surgery | DX: T81.89XD Other complications of procedures, not elsewhere classified, subsequent encounter (principal); M65.062 Abscess of tendon sheath, left lower leg; L03.116 Cellulitis of left lower limb; E11.9 Type 2 diabetes mellitus without complications; I25.10 Atherosclerotic heart disease of native coronary artery without angina pectoris; I25.2 Old myocardial infarction; I10 Essential (primary) hypertension; F41.9 Anxiety disorder, unspecified; Z90.710 Acquired absence of both cervix and uterus; Z90.49 Acquired absence of other specified parts of digestive tract; Z95.1 Presence of aortocoronary bypass graft; Z85.42 Personal history of malignant neoplasm of other parts of uterus; Y83.8 Other surgical procedures as the cause of abnormal reaction of the patient, or of later complication, without mention of misadventure at the time of the procedure ==

== ENCOUNTER → 2022-02-01 | Outpatient (CLI) | payer MEDICARE, MEDICAID | LOC: WOUNDCARE 03:17 | PROVIDERS: ATTEND Surgery | DX: T81.89XA Other complications of procedures, not elsewhere classified, initial encounter (principal); L03.116 Cellulitis of left lower limb; M65.062 Abscess of tendon sheath, left lower leg; I25.10 Atherosclerotic heart disease of native coronary artery without angina pectoris; I25.2 Old myocardial infarction; I10 Essential (primary) hypertension; F41.9 Anxiety disorder, unspecified; Z90.710 Acquired absence of both cervix and uterus; Z90.49 Acquired absence of other specified parts of digestive tract; Z95.1 Presence of aortocoronary bypass graft; Z85.42 Personal history of malignant neoplasm of other parts of uterus; Y92.238 Other place in hospital as the place of occurrence of the external cause; Y83.8 Other surgical procedures as the cause of abnormal reaction of the patient, or of later complication, without mention of misadventure at the time of the procedure ==

== ENCOUNTER 2022-02-09 03:31 | Emergency (ER) | payer MEDICARE, MEDICAID ==
[2022-02-09 03:47] LABS: BASO % 0.5 % (0.0-1.0); HEMATOCRIT 30.1 % (37.0-47.0); LYMPH # 0.9 10*3/uL (1.3-4.4); LYMPH % 13.6 % (27.0-41.0); MEAN CELL VOLUME 90.9 fl (81.0-99.0); MEAN CORPUSCULAR HGB 28.4 pg (27.0-31.0); MEAN CORPUSCULAR HGB CONC 31.2 g/dl (33.0-37.0); MEAN PLATELET VOLUME 8.3 fl (9.6-12.3); MONO # 0.3 10*3/uL (0.1-1.0); MONO % 5.3 % (3.0-9.0); NEUT % 80.1 % (47.0-73.0); PLATELET COUNT AUTOMATED 226 10*3/uL (130-400); RED BLOOD COUNT 3.31 10*6/uL (4.10-5.10); RED CELL DISTRI WIDTH 14.2 % (0-14.5); WHITE BLOOD COUNT 6.2 10*3/uL (4.8-10.8)
[2022-02-09 04:04] LABS: CREATININE 1.66 mg/dL (0.55-1.02); POTASSIUM 3.8 mmol/L (3.5-5.1); TOTAL PROTEIN 6.5 gm/dL (6.4-8.2)
== END 2022-02-09 06:49 | disposition home or self-care (01) ==
LOC: ED 03:31
PROVIDERS: Internal Medicine
DX: N17.9 Acute kidney failure, unspecified (principal); I95.9 Hypotension, unspecified; D64.9 Anemia, unspecified; Z90.49 Acquired absence of other specified parts of digestive tract; Z79.899 Other long term (current) drug therapy; Z79.82 Long term (current) use of aspirin

== ENCOUNTER → 2022-02-15 | Outpatient (CLI) | payer MEDICARE, MEDICAID | END | disposition home or self-care (01) | LOC: WOUNDCARE 05:35 | PROVIDERS: ATTEND Surgery | DX: T81.89XD Other complications of procedures, not elsewhere classified, subsequent encounter (principal); M65.062 Abscess of tendon sheath, left lower leg; L03.116 Cellulitis of left lower limb; I25.10 Atherosclerotic heart disease of native coronary artery without angina pectoris; I10 Essential (primary) hypertension; I25.2 Old myocardial infarction; F41.9 Anxiety disorder, unspecified; Z90.710 Acquired absence of both cervix and uterus; Z90.49 Acquired absence of other specified parts of digestive tract; Z95.1 Presence of aortocoronary bypass graft; Z85.42 Personal history of malignant neoplasm of other parts of uterus; Y83.8 Other surgical procedures as the cause of abnormal reaction of the patient, or of later complication, without mention of misadventure at the time of the procedure ==

== ENCOUNTER → 2022-05-03 | Day surgery (SDC) | payer MEDICARE, MEDICAID ==
[~2022-05-03] VITALS: Ht 165.1 cm; Wt 83.9 kg
[~2022-05-03] MED LIST changes: +Carafate1 GM PO; +KEFLEX 500 MG E2 CAP PO; +Lantus SC; +MECLIZINE HCL25 M2 PO; +METOPROLOL SUCC25 M2 PO; +PANTOPRAZOLE SO40 MG PO
[2022-05-03 07:12] VITALS: BP 135/48
[2022-05-03 07:49] VITALS: BP 103/47
[2022-05-03 08:04] VITALS: BP 110/47
[2022-05-03 08:20] VITALS: BP 100/46
[2022-05-04 10:07] LABS: ACID FAST SPEC PROCESSING Tissue Grinding (.)
== END | disposition home or self-care (01) ==
LOC: SDC 04-29 08:00
PROVIDERS: ATTEND Podiatrist
DX: M86.671 Other chronic osteomyelitis, right ankle and foot (principal); K21.9 Gastro-esophageal reflux disease without esophagitis; E11.40 Type 2 diabetes mellitus with diabetic neuropathy, unspecified; I12.9 Hypertensive chronic kidney disease with stage 1 through stage 4 chronic kidney disease, or unspecified chronic kidney disease; E11.22 Type 2 diabetes mellitus with diabetic chronic kidney disease; N18.30 Chronic kidney disease, stage 3 unspecified; I25.2 Old myocardial infarction; E78.00 Pure hypercholesterolemia, unspecified; Z79.899 Other long term (current) drug therapy; Z98.890 Other specified postprocedural states; Z90.710 Acquired absence of both cervix and uterus; Z90.49 Acquired absence of other specified parts of digestive tract; Z95.1 Presence of aortocoronary bypass graft

== ENCOUNTER → 2022-06-09 | Outpatient (CLI) | payer MEDICARE, MEDICAID ==
[~2022-06-09] MED LIST changes: +FUROSEMIDE20 M1 PO
== END | disposition home or self-care (01) ==
LOC: CARD 00:49
PROVIDERS: ATTEND Internal Medicine
DX: I08.3 Combined rheumatic disorders of mitral, aortic and tricuspid valves (principal); I11.9 Hypertensive heart disease without heart failure; I27.20 Pulmonary hypertension, unspecified; I25.810 Atherosclerosis of coronary artery bypass graft(s) without angina pectoris; E78.5 Hyperlipidemia, unspecified; Z95.1 Presence of aortocoronary bypass graft

== ENCOUNTER 2022-07-30 15:38 | Emergency (ER) | payer MEDICARE, MEDICAID ==
[2022-07-30 16:00] LABS: BASO % 0.4 % (0.0-1.0); EOS % 0.1 % (1.0-4.0); HEMATOCRIT 36.6 % (37.0-47.0); LYMPH # 1.8 10*3/uL (1.3-4.4); LYMPH % 24.5 % (27.0-41.0); MEAN CELL VOLUME 83.9 fl (81.0-99.0); MEAN CORPUSCULAR HGB 27.8 pg (27.0-31.0); MEAN CORPUSCULAR HGB CONC 33.1 g/dl (33.0-37.0); MONO # 0.5 10*3/uL (0.1-1.0); MONO % 6.7 % (3.0-9.0); NEUT # 4.9 10*3/uL (2.3-7.9); NEUT % 67.9 % (47.0-73.0); PLATELET COUNT AUTOMATED 254 10*3/uL (130-400); RED BLOOD COUNT 4.36 10*6/uL (4.10-5.10); RED CELL DISTRI WIDTH 14.3 % (0-14.5); WHITE BLOOD COUNT 7.2 10*3/uL (4.8-10.8)
[2022-07-30 16:13] LABS: ACT PARTIAL THROMBO TIME 25.7 SECONDS (20.0-32.1); INTERNATIONAL NORM RATIO 0.9 (2.0-3.5)
[2022-07-30 16:16] LABS: POTASSIUM 3.9 mmol/L (3.4-5.1); TOTAL PROTEIN 7.7 gm/dL (6.0-8.0)
[2022-07-30] MEDS ORDERED: AUGMENTIN400 MG/5 M PO (16:21)
[2022-07-31 07:11] LABS: BASO % 0.3 % (0.0-1.0); HEMATOCRIT 33.8 % (37.0-47.0); LYMPH # 1.9 10*3/uL (1.3-4.4); LYMPH % 31.1 % (27.0-41.0); MEAN CELL VOLUME 83.7 fl (81.0-99.0); MEAN CORPUSCULAR HGB 27.5 pg (27.0-31.0); MEAN CORPUSCULAR HGB CONC 32.8 g/dl (33.0-37.0); MONO # 0.4 10*3/uL (0.1-1.0); MONO % 6.7 % (3.0-9.0); NEUT # 3.7 10*3/uL (2.3-7.9); NEUT % 61.7 % (47.0-73.0); PLATELET COUNT AUTOMATED 192 10*3/uL (130-400); RED BLOOD COUNT 4.04 10*6/uL (4.10-5.10); RED CELL DISTRI WIDTH 14.5 % (0-14.5)
== END 2022-07-31 09:35 | disposition short-term general hospital (02) ==
LOC: ED 15:38
PROVIDERS: Emergency Medicine
DX: R07.9 Chest pain, unspecified (principal); R74.8 Abnormal levels of other serum enzymes; Z79.899 Other long term (current) drug therapy; Z90.49 Acquired absence of other specified parts of digestive tract; Z90.710 Acquired absence of both cervix and uterus

== ENCOUNTER 2022-09-03 16:53 | Emergency (ER) | payer MEDICARE, MEDICAID ==
[~2022-09-03] VITALS: Ht 165.1 cm; Wt 81.6 kg
[~2022-09-03 16:53] MED LIST changes: +AUGMENTIN400 MG/5 M PO
[2022-09-03 18:00] LABS: BASO % 0.2 % (0.0-1.0); HEMATOCRIT 28.5 % (37.0-47.0); LYMPH % 21.2 % (27.0-41.0); MEAN CELL VOLUME 87.4 fl (81.0-99.0); MEAN CORPUSCULAR HGB CONC 30.9 g/dl (33.0-37.0); MEAN PLATELET VOLUME 9.3 fl (9.6-12.3); MONO # 0.3 10*3/uL (0.1-1.0); MONO % 7.1 % (3.0-9.0); NEUT # 3.2 10*3/uL (2.3-7.9); NEUT % 71.3 % (47.0-73.0); PLATELET COUNT AUTOMATED 174 10*3/uL (130-400); RED BLOOD COUNT 3.26 10*6/uL (4.10-5.10); RED CELL DISTRI WIDTH 15.8 % (0-14.5); WHITE BLOOD COUNT 4.5 10*3/uL (4.8-10.8)
[2022-09-03 18:16] LABS: POTASSIUM 4.5 mmol/L (3.4-5.1); TOTAL PROTEIN 6.3 gm/dL (6.0-8.0)
[2022-09-03] MEDS ORDERED: PREDNISONE50 MG PO (18:53)
[2022-09-03] MEDS ORDERED: ZITHROMAX250 MG PO (18:53)
== END 2022-09-03 18:59 | disposition home or self-care (01) ==
LOC: ED 16:53
PROVIDERS: Internal Medicine
DX: J40 Bronchitis, not specified as acute or chronic (principal); R06.02 Shortness of breath; Z90.710 Acquired absence of both cervix and uterus; Z90.49 Acquired absence of other specified parts of digestive tract

== ENCOUNTER → 2022-09-15 | Outpatient (CLI) | payer MEDICARE, MEDICAID ==
[~2022-09-15] MED LIST changes: +PREDNISONE50 MG PO
== END | disposition home or self-care (01) ==
LOC: CARD 00:51
PROVIDERS: ATTEND Internal Medicine Clinical Cardiac Electrophysiology
DX: I08.3 Combined rheumatic disorders of mitral, aortic and tricuspid valves (principal); I42.9 Cardiomyopathy, unspecified

== ENCOUNTER 2022-10-01 12:29 | Emergency (ER) | payer MEDICARE, MEDICAID ==
[~2022-10-01] VITALS: Ht 165.1 cm; Wt 90.7 kg
[~2022-10-01 12:29] MED LIST changes: +Bactroban Oint22 GM T; +CLOPIDOGREL75 MG PO; +IMDUR SA30 MG PO; +LANSOPRAZOLE30 MG PO; +LINZESS145 MC1 PO; +TORSEMIDE20 MG PO; +VIBRAMYCIN100 MG PO
== END 2022-10-01 15:26 | disposition home or self-care (01) ==
LOC: ED
DX: K59.00 Constipation, unspecified (principal); Z90.710 Acquired absence of both cervix and uterus; Z90.49 Acquired absence of other specified parts of digestive tract; Z98.890 Other specified postprocedural states

== ENCOUNTER → 2023-03-29 | Outpatient (CLI) | payer MEDICARE, MEDICAID ==
[~2023-03-29] MED LIST changes: +APRESOLINE10 MG PO; +Imdur SA60 MG PO; +NITROGLYCERIN0.4 MG SL; +NITROSTAT0.4 MG SL; +VITAMIN D350 MCG PO
== END | disposition home or self-care (01) ==
LOC: RAD 02:25
PROVIDERS: ATTEND Family Medicine
DX: K21.9 Gastro-esophageal reflux disease without esophagitis (principal)

== ENCOUNTER 2023-07-03 20:14 | Emergency (ER) | payer MEDICARE, MEDICAID ==
[~2023-07-03] VITALS: Ht 165.1 cm; Wt 81.6 kg
[2023-07-03 23:42] LABS: BASO % 0.3 % (0.0-1.0); HEMATOCRIT 29.4 % (37.0-47.0); LYMPH # 1.5 10*3/uL (1.3-4.4); LYMPH % 20.4 % (27.0-41.0); MEAN CELL VOLUME 79.5 fl (81.0-99.0); MEAN CORPUSCULAR HGB 25.4 pg (27.0-31.0); MEAN PLATELET VOLUME 9.4 fl (9.6-12.3); MONO # 0.6 10*3/uL (0.1-1.0); MONO % 8.2 % (3.0-9.0); NEUT # 5.1 10*3/uL (2.3-7.9); NEUT % 70.8 % (47.0-73.0); PLATELET COUNT AUTOMATED 231 10*3/uL (130-400); RED CELL DISTRI WIDTH 13.9 % (0-14.5); WHITE BLOOD COUNT 7.2 10*3/uL (4.8-10.8)
[2023-07-03 23:52] LABS: ACT PARTIAL THROMBO TIME 24.8 SECONDS (20.0-32.1)
[2023-07-04] LABS: TOTAL PROTEIN 6.4 gm/dL (6.0-8.0)
[2023-07-04] MEDS ORDERED: LANSOPRAZOLE30 MG PO (00:22)
[2023-07-04 01:01] LABS: BILIRUBIN Negative (Negative); BLOOD Negative (Negative); CLARITY Clear (Clear); COLOR Yellow (Yellow); GLUCOSE Negative (Negative); KETONE Negative (Negative); LEUKO ESTERASE 2+ (Negative); NITRITE Negative (Negative); PH 5.5 (4.5-8.0); UROBILINOGEN 0.2 E.U./dl (0.0-1.0)
[2023-07-04 01:38] LABS: WBC 21-30 wbc/hpf (0-5)
[2023-07-04 01:39] LABS: BACTERIA 4+
[2023-07-04] MEDS ORDERED: CIPRO500 MG PO (01:56)
== END 2023-07-04 02:05 | disposition home or self-care (01) ==
LOC: ED 20:14
PROVIDERS: Internal Medicine
DX: N39.0 Urinary tract infection, site not specified (principal); I10 Essential (primary) hypertension; E11.65 Type 2 diabetes mellitus with hyperglycemia; Z88.5 Allergy status to narcotic agent; Z88.6 Allergy status to analgesic agent; Z88.8 Allergy status to other drugs, medicaments and biological substances; Z90.49 Acquired absence of other specified parts of digestive tract; Z90.710 Acquired absence of both cervix and uterus; Z95.5 Presence of coronary angioplasty implant and graft; Z98.890 Other specified postprocedural states

== ENCOUNTER 2023-08-14 21:56 | Emergency (ER) | payer MEDICARE, MEDICAID ==
[~2023-08-14] VITALS: Ht 165.1 cm; Wt 77.6 kg
[~2023-08-14 21:56] MED LIST changes: +ASPIRIN81 M1 PO; +CIPRO500 MG PO; +JARDIANCE10 MG PO; +LIPITOR80 MG PO; +METOCLOPRAMIDE10 MG PO; +OMEPRAZOLE40 MG PO
[2023-08-14 22:41] LABS: BASO % 0.3 % (0.0-1.0); HEMATOCRIT 29.1 % (37.0-47.0); LYMPH # 1.2 10*3/uL (1.3-4.4); LYMPH % 20.9 % (27.0-41.0); MEAN CELL VOLUME 80.2 fl (81.0-99.0); MEAN CORPUSCULAR HGB 23.4 pg (27.0-31.0); MEAN CORPUSCULAR HGB CONC 29.2 g/dl (33.0-37.0); MEAN PLATELET VOLUME 9.3 fl (9.6-12.3); MONO # 0.5 10*3/uL (0.1-1.0); MONO % 7.7 % (3.0-9.0); NEUT # 4.2 10*3/uL (2.3-7.9); NEUT % 70.9 % (47.0-73.0); PLATELET COUNT AUTOMATED 209 10*3/uL (130-400); RED BLOOD COUNT 3.63 10*6/uL (4.10-5.10); RED CELL DISTRI WIDTH 14.6 % (0-14.5); WHITE BLOOD COUNT 5.9 10*3/uL (4.8-10.8)
[2023-08-14 22:56] LABS: ACT PARTIAL THROMBO TIME 24.2 SECONDS (20.0-32.1)
[2023-08-14 23:05] LABS: POTASSIUM 3.8 mmol/L (3.4-5.1); TOTAL PROTEIN 6.5 gm/dL (6.0-8.0)
[2023-08-14 23:50] LABS: BILIRUBIN Negative (Negative); BLOOD Negative (Negative); CLARITY Clear (Clear); COLOR Yellow (Yellow); GLUCOSE Negative (Negative); KETONE Negative (Negative); LEUKO ESTERASE 3+ (Negative); NITRITE Negative (Negative); SPECIFIC GRAVITY 1.015 (1.001-1.030); UROBILINOGEN 0.2 E.U./dl (0.0-1.0)
[2023-08-15 00:09] LABS: BACTERIA 2+; WBC 21-30 wbc/hpf (0-5)
[2023-08-15] MEDS ORDERED: CIPRO500 MG PO (01:00)
== END 2023-08-15 01:09 | disposition home or self-care (01) ==
LOC: ED 21:56
PROVIDERS: Internal Medicine
DX: R07.89 Other chest pain (principal); N39.0 Urinary tract infection, site not specified; I10 Essential (primary) hypertension; E11.9 Type 2 diabetes mellitus without complications; Z88.5 Allergy status to narcotic agent; Z88.8 Allergy status to other drugs, medicaments and biological substances; Z90.710 Acquired absence of both cervix and uterus; Z90.49 Acquired absence of other specified parts of digestive tract; Z95.5 Presence of coronary angioplasty implant and graft; Z98.890 Other specified postprocedural states

== ENCOUNTER 2024-03-02 12:37 | Emergency (ER) | payer OTHER, MEDICAID ==
[~2024-03-02] VITALS: Ht 165.1 cm; Wt 74.8 kg
[~2024-03-02 12:37] MED LIST changes: +B121000 MCG/1 IM; +NOVOLOG FL100 UNIT/2 SC
[2024-03-02] MEDS ORDERED: Tdap Vaccine 0.5 ML SYR (Adult Vaccine) IM ONE (12:45)
== END 2024-03-02 13:01 | disposition home or self-care (01) ==
LOC: ED 12:37
DX: S80.811A Abrasion, right lower leg, initial encounter (principal); Z88.6 Allergy status to analgesic agent; Z79.899 Other long term (current) drug therapy; Z79.82 Long term (current) use of aspirin; Z79.4 Long term (current) use of insulin; Z90.710 Acquired absence of both cervix and uterus; Z90.49 Acquired absence of other specified parts of digestive tract; Z95.5 Presence of coronary angioplasty implant and graft; X58.XXXA Exposure to other specified factors, initial encounter; Y93.89 Activity, other specified; Y92.89 Other specified places as the place of occurrence of the external cause; Y99.8 Other external cause status

== ENCOUNTER 2024-12-10 07:23 | Inpatient (IN) | payer OTHER, MEDICAID ==
[~2024-12-10] VITALS: Ht 165.1 cm; Wt 70.8 kg
[~2024-12-10 07:23] MED LIST changes: +FUROSEMIDE40 MG PO; +GOOD NEIGHBOR M25 M1 PO; +IBGARD90 MG PO; +LINZESS290 MC1 PO; +LISINOPRIL2.5 MG PO; +Lopressor25 MG PO; +OMNICEF300 MG PO
[2024-12-10 07:33] VITALS: BP 132/72
[2024-12-10 07:49] LABS: BASO % 0.2 % (0.0-1.0); HEMATOCRIT 29.7 % (37.0-47.0); MEAN CELL VOLUME 79.4 fl (81.0-99.0); MEAN CORPUSCULAR HGB 24.1 pg (27.0-31.0); MEAN CORPUSCULAR HGB CONC 30.3 g/dl (33.0-37.0); MEAN PLATELET VOLUME 8.4 fl (9.6-12.3); MONO # 0.6 10*3/uL (0.1-1.0); NEUT # 7.7 10*3/uL (2.3-7.9); NEUT % 84.7 % (47.0-73.0); PLATELET COUNT AUTOMATED 204 10*3/uL (130-400); RED BLOOD COUNT 3.74 10*6/uL (4.10-5.10); RED CELL DISTRI WIDTH 13.9 % (0-14.5); WHITE BLOOD COUNT 9.1 10*3/uL (4.8-10.8)
[2024-12-10] MEDS ORDERED: ACETAMINOPHEN 325 MG TAB PO ONE (08:00)
[2024-12-10 08:10] LABS: POTASSIUM 4.3 mmol/L (3.4-5.1)
[2024-12-10] MEDS ORDERED: SODIUM CHLORIDE 0.9% 1,000 ML IV ONE ×2 (08:40→20:40)
[2024-12-10] MEDS ORDERED: AZITHROMYCIN 250 ML IV ONE (08:40)
[2024-12-10] MEDS ORDERED: cefTRIAXone Sodium 1 GM/10 ML SYR IV ONE (08:40)
[2024-12-10] MEDS ORDERED: NITROSTAT0.3 M1 SL (08:55)
[2024-12-10] MEDS ORDERED: Ondansetron Hydrochloride 4 MG/2 ML VIAL IV PRN (10:55)
[2024-12-10] MEDS ORDERED: ACETAMINOPHEN 325 MG TAB PO PRN (10:55)
[2024-12-10] MEDS ORDERED: Acetaminophen/Hydrocodone 5 MG/325 MG TABLET PO PRN (10:55)
[2024-12-10] MEDS ORDERED: DEXTROSE 10 % IN WATER 250 ML IV PRN (10:55)
[2024-12-10] MEDS ORDERED: BISACODYL 5 MG TAB PO PRN (10:55)
[2024-12-10] MEDS ORDERED: Albuterol Sulf/Ipratropium 3 ML VIAL NEB SCH (11:21)
[2024-12-10] MEDS ORDERED: GABAPENTIN 300 MG CAP PO PRN (11:25)
[2024-12-10] MEDS ORDERED: INSULIN LISPRO 1 UNIT/0.01 ML SQ SCH (11:30)
[2024-12-10] MEDS ORDERED: [UNRECOGNIZED DRUG - OTHER] PO SCH (11:30)
[2024-12-10] MEDS ORDERED: Metoclopramide Hydrochloride 5 MG TAB PO SCH (11:41)
[2024-12-10 12:17] LABS: BILIRUBIN Negative (Negative); BLOOD Negative (Negative); CLARITY Clear (Clear); COLOR Yellow (Yellow); GLUCOSE Trace (Negative); KETONE Negative (Negative); LEUKO ESTERASE 1+ (Negative); NITRITE Negative (Negative); UROBILINOGEN 0.2 E.U./dl (0.0-1.0)
[2024-12-10 12:20] LABS: PH >= 9.0 (4.5-8.0)
[2024-12-10 12:44] LABS: EPITHELIAL CELLS 16-20
[2024-12-10 12:45] LABS: BACTERIA 3+
[2024-12-10 17:45] VITALS: BP 131/71
[2024-12-10 19:32] VITALS: BP 115/58
[2024-12-10] MEDS ORDERED: Pantoprazole Sodium 20 MG TAB PO SCH (19:50)
[2024-12-10] MEDS ORDERED: MORPHINE Sulfate 2 MG/ML SYR IV ONE (20:20)
[2024-12-10] MEDS ORDERED: HEPARIN SODIUM 250 ML IV SCH (20:30)
[2024-12-10] MEDS ORDERED: ASPIRIN 325 MG ENTERIC COATED PO ONE (20:35)
[2024-12-10 20:39] VITALS: BP 131/71
[2024-12-10] MEDS ORDERED: ATORVASTATIN CALCIUM 40 MG TABLET PO SCH (20:40)
[2024-12-10] MEDS ORDERED: MORPHINE Sulfate 2 MG/ML SYR IV PRN (21:35)
[2024-12-10] MEDS ORDERED: Metoprolol Tartrate 25 MG TAB PO SCH (22:00)
[2024-12-10 22:50] VITALS: BP 136/63
[2024-12-11] VITALS (9 sets, daily range): BP systolic 100–142; BP diastolic 45–64
[2024-12-11 04:07] LABS: BASO % 0.1 % (0.0-1.0); HEMATOCRIT 26.8 % (37.0-47.0); MEAN CELL VOLUME 79.5 fl (81.0-99.0); MEAN CORPUSCULAR HGB 23.7 pg (27.0-31.0); MEAN CORPUSCULAR HGB CONC 29.9 g/dl (33.0-37.0); MEAN PLATELET VOLUME 8.7 fl (9.6-12.3); MONO # 0.6 10*3/uL (0.1-1.0); MONO % 7.2 % (3.0-9.0); NEUT # 6.3 10*3/uL (2.3-7.9); NEUT % 80.1 % (47.0-73.0); PLATELET COUNT AUTOMATED 207 10*3/uL (130-400); RED BLOOD COUNT 3.37 10*6/uL (4.10-5.10); RED CELL DISTRI WIDTH 14.1 % (0-14.5); WHITE BLOOD COUNT 7.8 10*3/uL (4.8-10.8)
[2024-12-11 04:28] LABS: POTASSIUM 4.2 mmol/L (3.4-5.1); TOTAL PROTEIN 6.2 gm/dL (6.0-8.0)
[2024-12-11] MEDS ORDERED: AZITHROMYCIN 250 ML IV SCH (09:00)
[2024-12-11] MEDS ORDERED: ASPIRIN ENTERIC COATED 81 MG TAB PO SCH (10:00)
[2024-12-11] MEDS ORDERED: Enoxaparin Sodium 30 MG/0.3 ML SYR SC SCH (10:00)
[2024-12-11] MEDS ORDERED: MUPIROCIN 15 GM TUBE T SCH (10:00)
[2024-12-11] MEDS ORDERED: Insulin Glargine, Recombinan 1 UNIT/0.01 ML SC SCH (10:00)
[2024-12-11] MEDS ORDERED: Clopidogrel Hydrogen Sulfate 75 MG TAB PO SCH (10:00)
[2024-12-11] MEDS ORDERED: LINACLOTIDE 145 MCG CAP PO SCH (10:00)
[2024-12-11] MEDS ORDERED: cefTRIAXone Sodium 1 GM,IV 1 EA in SYRINGE INFUSION 10 ML IV SCH (10:00)
[2024-12-11] MEDS ORDERED: FUROSEMIDE 40 MG/4 ML VIAL IV SCH (10:45)
[2024-12-11] MEDS ORDERED: ERGOCALCIFEROL 50,000 IU CAP (1.25 MG) PO ONE (10:55)
[2024-12-11] MEDS ORDERED: NITROGLYCERIN 1 IN PACKET T ONE (20:45)
[2024-12-11] MEDS ORDERED: SODIUM CHLORIDE 0.9% 500 ML IV ONE (22:00)
[2024-12-12] VITALS: BP 114/60; BP 116/64
[2024-12-12 01:02] VITALS: BP 121/64
[2024-12-12 03:53] VITALS: BP 106/52
[2024-12-12 04:44] VITALS: BP 113/50
[2024-12-12 06:02] LABS: POTASSIUM 4.5 mmol/L (3.4-5.1)
[2024-12-12 08:00] VITALS: BP 119/48
[2024-12-12] MEDS ORDERED: ATORVASTATIN CA40 M1 PO (11:43)
[2024-12-12] MEDS ORDERED: FUROSEMIDE10 MG/1 M1 IV (11:43)
[2024-12-12] MEDS ORDERED: LOPRESSOR25 MG PO (11:43)
[2024-12-12] MEDS ORDERED: HEPARIN 2525000 UNIT IV (11:43)
[2024-12-12 12:00] VITALS: BP 108/50
== END 2024-12-12 12:03 | disposition short-term general hospital (02) | DRG 280 ==
LOC: ED 07:23 → EDHOLD 08:45 → 5E 08:45 → EDHOLD 11:06 → 5E 18:03
PROVIDERS: Internal Medicine; Registered Nurse; ADMIT Internal Medicine; ATTEND Internal Medicine
DX: I13.0 Hypertensive heart and chronic kidney disease with heart failure and stage 1 through stage 4 chronic kidney disease, or unspecified chronic kidney disease (principal); I50.23 Acute on chronic systolic (congestive) heart failure; I21.A1 Myocardial infarction type 2; J15.69 Pneumonia due to other Gram-negative bacteria; N17.9 Acute kidney failure, unspecified; N18.4 Chronic kidney disease, stage 4 (severe); Z66 Do not resuscitate; D50.9 Iron deficiency anemia, unspecified; I25.10 Atherosclerotic heart disease of native coronary artery without angina pectoris; E11.22 Type 2 diabetes mellitus with diabetic chronic kidney disease; F41.1 Generalized anxiety disorder; K21.9 Gastro-esophageal reflux disease without esophagitis; E78.3 Hyperchylomicronemia; G25.0 Essential tremor; E11.65 Type 2 diabetes mellitus with hyperglycemia; S91.301A Unspecified open wound, right foot, initial encounter; E03.9 Hypothyroidism, unspecified; E11.42 Type 2 diabetes mellitus with diabetic polyneuropathy; Z88.8 Allergy status to other drugs, medicaments and biological substances; Z91.09 Other allergy status, other than to drugs and biological substances; Z79.899 Other long term (current) drug therapy; Z79.01 Long term (current) use of anticoagulants; Z79.2 Long term (current) use of antibiotics; Z90.49 Acquired absence of other specified parts of digestive tract; Z90.710 Acquired absence of both cervix and uterus; Z95.5 Presence of coronary angioplasty implant and graft; Z82.49 Family history of ischemic heart disease and other diseases of the circulatory system; Z84.1 Family history of disorders of kidney and ureter; Z83.3 Family history of diabetes mellitus; Z79.4 Long term (current) use of insulin; X58.XXXA Exposure to other specified factors, initial encounter; Y93.89 Activity, other specified; Y92.89 Other specified places as the place of occurrence of the external cause; Y99.8 Other external cause status

== ENCOUNTER 2025-01-07 21:16 | Emergency (ER) | payer OTHER, MEDICAID ==
[~2025-01-07] VITALS: Ht 165.1 cm; Wt 70.9 kg
[~2025-01-07 21:16] MED LIST changes: +ATORVASTATIN CA40 M1 PO; +FUROSEMIDE10 MG/1 M1 IV; +HEPARIN 2525000 UNIT IV; +NITROSTAT0.3 M1 SL
[2025-01-07 21:47] LABS: BASO % 0.4 % (0.0-1.0); HEMATOCRIT 26.4 % (37.0-47.0); MEAN CELL VOLUME 76.3 fl (81.0-99.0); MEAN CORPUSCULAR HGB 22.8 pg (27.0-31.0); MEAN CORPUSCULAR HGB CONC 29.9 g/dl (33.0-37.0); MEAN PLATELET VOLUME 8.8 fl (9.6-12.3); MONO # 0.3 10*3/uL (0.1-1.0); MONO % 6.8 % (3.0-9.0); PLATELET COUNT AUTOMATED 165 10*3/uL (130-400); RED BLOOD COUNT 3.46 10*6/uL (4.10-5.10); RED CELL DISTRI WIDTH 14.5 % (0-14.5); WHITE BLOOD COUNT 4.6 10*3/uL (4.8-10.8)
[2025-01-07 22:09] LABS: POTASSIUM 4.3 mmol/L (3.4-5.1); TOTAL PROTEIN 6.3 gm/dL (6.0-8.0)
== END 2025-01-07 23:44 | disposition home or self-care (01) ==
LOC: ED 21:16
PROVIDERS: Internal Medicine
DX: R07.2 Precordial pain (principal); I12.9 Hypertensive chronic kidney disease with stage 1 through stage 4 chronic kidney disease, or unspecified chronic kidney disease; E11.22 Type 2 diabetes mellitus with diabetic chronic kidney disease; N18.9 Chronic kidney disease, unspecified; N17.9 Acute kidney failure, unspecified; E11.65 Type 2 diabetes mellitus with hyperglycemia; D50.9 Iron deficiency anemia, unspecified; Z79.899 Other long term (current) drug therapy; Z88.5 Allergy status to narcotic agent; Z90.49 Acquired absence of other specified parts of digestive tract; Z90.710 Acquired absence of both cervix and uterus; Z98.890 Other specified postprocedural states

== ENCOUNTER 2025-02-14 15:02 | Inpatient (IN) | payer OTHER, MEDICAID ==
[~2025-02-14] VITALS: Ht 165.1 cm; Wt 66.3 kg
[2025-02-14 15:07] VITALS: BP 103/48
[2025-02-14 15:38] LABS: BASO # 0.0 10*3/uL (0.0-0.1); BASO % 0.4 % (0.0-1.0); EOS # 0.0 10*3/uL (0.0-0.4); EOS % 0.0 % (1.0-4.0); MEAN CELL VOLUME 76.3 fl (81.0-99.0); MEAN CORPUSCULAR HGB 22.8 pg (27.0-31.0); MEAN PLATELET VOLUME 9.2 fl (9.6-12.3); MONO # 0.4 10*3/uL (0.1-1.0); MONO % 7.9 % (3.0-9.0); NEUT # 3.4 10*3/uL (2.3-7.9); NEUT % 69.8 % (47.0-73.0); NUCLEATED RED BLOOD CELL 0.0 % (0.0-0.0); NUCLEATED RED BLOOD CELL 0.0 10*3/uL (0.0-0.0); PLATELET COUNT AUTOMATED 182 10*3/uL (130-400); RED CELL DISTRI WIDTH 18.5 % (0-14.5)
[2025-02-14] MEDS ORDERED: NOVOLOG100 UNIT/1 SC (15:47)
[2025-02-14 16:09] LABS: BUN 40.0 mg/dl (9-23)
[2025-02-14] MEDS ORDERED: FUROSEMIDE 40 MG/4 ML VIAL IV ONE (17:20)
[2025-02-14 18:08] VITALS: BP 142/65
[2025-02-14] MEDS ORDERED: BISACODYL 5 MG TAB PO PRN (18:25)
[2025-02-14] MEDS ORDERED: ACETAMINOPHEN 325 MG TAB PO PRN (18:25)
[2025-02-14] MEDS ORDERED: ACETAMINOPHEN 650 MG SUPP R PRN (18:25)
[2025-02-14] MEDS ORDERED: TEMAZEPAM 15 MG CAP PO PRN (18:25)
[2025-02-14] MEDS ORDERED: BISACODYL 10 MG SUPP R PRN (18:25)
[2025-02-14] MEDS ORDERED: Ondansetron Hydrochloride 4 MG/2 ML VIAL IV PRN (18:25)
[2025-02-14] MEDS ORDERED: DEXTROSE 50% 25 GM/50 ML VIAL IV PRN (18:40)
[2025-02-14] MEDS ORDERED: GABAPENTIN 300 MG CAP PO PRN (18:40)
[2025-02-14 21:47] VITALS: BP 110/50
[2025-02-14] MEDS ORDERED: INSULIN LISPRO 1 UNIT/0.01 ML SQ SCH (22:00)
[2025-02-14] MEDS ORDERED: ATORVASTATIN CALCIUM 80 MG TAB PO SCH (22:00)
[2025-02-15 00:23] VITALS: BP 121/58
[2025-02-15 01:50] VITALS: BP 92/48
[2025-02-15 06:23] LABS: BASO # 0.0 10*3/uL (0.0-0.1); BASO % 0.5 % (0.0-1.0); EOS # 0.0 10*3/uL (0.0-0.4); EOS % 0.0 % (1.0-4.0); MEAN CELL VOLUME 77.4 fl (81.0-99.0); MEAN CORPUSCULAR HGB 22.6 pg (27.0-31.0); MEAN PLATELET VOLUME 9.9 fl (9.6-12.3); MONO # 0.4 10*3/uL (0.1-1.0); MONO % 7.1 % (3.0-9.0); NEUT # 3.2 10*3/uL (2.3-7.9); NEUT % 58.7 % (47.0-73.0); NUCLEATED RED BLOOD CELL 0.0 % (0.0-0.0); NUCLEATED RED BLOOD CELL 0.0 10*3/uL (0.0-0.0); PLATELET COUNT AUTOMATED 221 10*3/uL (130-400); RED CELL DISTRI WIDTH 18.5 % (0-14.5)
[2025-02-15 07:04] LABS: BUN 40.0 mg/dl (9-23); SGPT/ALT 14.0 U/L (5-49)
[2025-02-15 08:00] VITALS: BP 100/52
[2025-02-15] MEDS ORDERED: Midodrine Hydrochloride 5 MG TAB PO SCH (08:00)
[2025-02-15] MEDS ORDERED: ISOSORBIDE MONONITRATE 60 MG TAB PO SCH (10:00)
[2025-02-15] MEDS ORDERED: FUROSEMIDE 40 MG/4 ML VIAL IV SCH (10:00)
[2025-02-15] MEDS ORDERED: OMEPRAZOLE 20 MG CAP PO SCH (10:00)
[2025-02-15] MEDS ORDERED: Clopidogrel Hydrogen Sulfate 75 MG TAB PO SCH (10:00)
[2025-02-15] MEDS ORDERED: LINACLOTIDE 145 MCG CAP PO SCH (10:00)
[2025-02-15 12:00] VITALS: BP 116/49
[2025-02-15 16:00] VITALS: BP 104/52
[2025-02-15 20:00] VITALS: BP 132/61
[2025-02-16] VITALS: BP 118/54
[2025-02-16 05:51] LABS: BUN 45.0 mg/dl (9-23)
[2025-02-16 05:59] LABS: BASO # 0.0 10*3/uL (0.0-0.1); BASO % 0.7 % (0.0-1.0); EOS # 0.0 10*3/uL (0.0-0.4); EOS % 0.0 % (1.0-4.0); MEAN CELL VOLUME 77.6 fl (81.0-99.0); MEAN CORPUSCULAR HGB 22.4 pg (27.0-31.0); MEAN PLATELET VOLUME 10.1 fl (9.6-12.3); MONO # 0.5 10*3/uL (0.1-1.0); MONO % 9.2 % (3.0-9.0); NEUT # 3.5 10*3/uL (2.3-7.9); NEUT % 59.0 % (47.0-73.0); NUCLEATED RED BLOOD CELL 0.0 % (0.0-0.0); NUCLEATED RED BLOOD CELL 0.0 10*3/uL (0.0-0.0); PLATELET COUNT AUTOMATED 211 10*3/uL (130-400); RED CELL DISTRI WIDTH 18.3 % (0-14.5)
[2025-02-16 08:00] VITALS: BP 126/65
[2025-02-16] MEDS ORDERED: ASPIRIN ENTERIC COATED 81 MG TAB PO SCH (10:00)
[2025-02-16 12:00] VITALS: BP 107/68
[2025-02-16 16:00] VITALS: BP 119/49
[2025-02-16 20:00] VITALS: BP 94/36
[2025-02-17] MEDS ORDERED: TEMAZEPAM 15 MG CAP PO PRN (02:35)
[2025-02-17 06:46] LABS: BASO # 0.1 10*3/uL (0.0-0.1); BASO % 0.8 % (0.0-1.0); EOS # 0.0 10*3/uL (0.0-0.4); EOS % 0.3 % (1.0-4.0); MEAN CELL VOLUME 76.7 fl (81.0-99.0); MEAN CORPUSCULAR HGB 22.3 pg (27.0-31.0); MEAN PLATELET VOLUME 10.2 fl (9.6-12.3); MONO # 0.5 10*3/uL (0.1-1.0); MONO % 7.9 % (3.0-9.0); NEUT # 3.6 10*3/uL (2.3-7.9); NEUT % 58.4 % (47.0-73.0); NUCLEATED RED BLOOD CELL 0.0 % (0.0-0.0); NUCLEATED RED BLOOD CELL 0.0 10*3/uL (0.0-0.0); PLATELET COUNT AUTOMATED 211 10*3/uL (130-400); RED CELL DISTRI WIDTH 18.3 % (0-14.5)
[2025-02-17 07:41] LABS: BUN 48.0 mg/dl (9-23)
[2025-02-17 08:00] VITALS: BP 100/50
[2025-02-17] MEDS ORDERED: METOPROLOL SUCCINATE XR 25 MG TAB PO SCH (11:10)
[2025-02-17 12:00] VITALS: BP 132/52
[2025-02-17 16:00] VITALS: BP 156/52
[2025-02-17] MEDS ORDERED: FUROSEMIDE 40 MG/4 ML VIAL IV SCH (18:00)
[2025-02-17 20:00] VITALS: BP 124/47
[2025-02-18] VITALS: BP 131/47
[2025-02-18 06:30] LABS: BASO # 0.0 10*3/uL (0.0-0.1); BASO % 0.5 % (0.0-1.0); EOS # 0.0 10*3/uL (0.0-0.4); EOS % 0.0 % (1.0-4.0); MEAN CELL VOLUME 76.4 fl (81.0-99.0); MEAN CORPUSCULAR HGB 22.5 pg (27.0-31.0); MEAN PLATELET VOLUME 10.1 fl (9.6-12.3); MONO # 0.5 10*3/uL (0.1-1.0); MONO % 8.3 % (3.0-9.0); NEUT # 3.7 10*3/uL (2.3-7.9); NEUT % 60.5 % (47.0-73.0); NUCLEATED RED BLOOD CELL 0.0 % (0.0-0.0); NUCLEATED RED BLOOD CELL 0.0 10*3/uL (0.0-0.0); PLATELET COUNT AUTOMATED 219 10*3/uL (130-400); RED CELL DISTRI WIDTH 18.0 % (0-14.5)
[2025-02-18 07:00] LABS: BUN 47.0 mg/dl (9-23)
[2025-02-18 08:00] VITALS: BP 91/51
[2025-02-18] MEDS ORDERED: PERFLUTREN PROTEIN-A MICROSPHR 3 ML VIAL IV ONE (09:07)
[2025-02-18 09:28] VITALS: BP 131/64
[2025-02-18] MEDS ORDERED: diphenhydrAMINE hydrochloride 25 MG CAP PO PRN (11:45)
[2025-02-18 12:00] VITALS: BP 118/47
[2025-02-18 16:00] VITALS: BP 109/42
[2025-02-18 20:00] VITALS: BP 100/41
[2025-02-18] MEDS ORDERED: NYSTATIN 15 GM BOT T SCH (22:00)
[2025-02-19] VITALS: BP 100/50
[2025-02-19 08:00] VITALS: BP 127/55
[2025-02-19] MEDS ORDERED: MIDODRINE HCL5 M1 PO (10:47)
[2025-02-19] MEDS ORDERED: METOPROLOL SUCC25 M2 PO (10:47)
[2025-02-19] MEDS ORDERED: LASIX20 MG PO (10:47)
== END 2025-02-19 11:36 | disposition home or self-care (01) | DRG 291 ==
LOC: ED 15:02 → 5E 17:31 → EDHOLD 17:31 → 5E 02-15 01:02
PROVIDERS: Emergency Medicine; Student in an Organized Health Care Education/Training Program; ADMIT Family Medicine; ATTEND Family Medicine
DX: I13.0 Hypertensive heart and chronic kidney disease with heart failure and stage 1 through stage 4 chronic kidney disease, or unspecified chronic kidney disease (principal); I50.23 Acute on chronic systolic (congestive) heart failure; N17.0 Acute kidney failure with tubular necrosis; N18.4 Chronic kidney disease, stage 4 (severe); I25.10 Atherosclerotic heart disease of native coronary artery without angina pectoris; F41.1 Generalized anxiety disorder; I25.5 Ischemic cardiomyopathy; K21.9 Gastro-esophageal reflux disease without esophagitis; E78.5 Hyperlipidemia, unspecified; E03.9 Hypothyroidism, unspecified; E11.42 Type 2 diabetes mellitus with diabetic polyneuropathy; D50.9 Iron deficiency anemia, unspecified; E11.65 Type 2 diabetes mellitus with hyperglycemia; G25.0 Essential tremor; R00.1 Bradycardia, unspecified; E83.39 Other disorders of phosphorus metabolism; S90.121A Contusion of right lesser toe(s) without damage to nail, initial encounter; E11.22 Type 2 diabetes mellitus with diabetic chronic kidney disease; Z88.8 Allergy status to other drugs, medicaments and biological substances; Z91.09 Other allergy status, other than to drugs and biological substances; Z79.899 Other long term (current) drug therapy; Z79.2 Long term (current) use of antibiotics; Z79.01 Long term (current) use of anticoagulants; Z90.49 Acquired absence of other specified parts of digestive tract; Z90.710 Acquired absence of both cervix and uterus; Z79.4 Long term (current) use of insulin; Z95.5 Presence of coronary angioplasty implant and graft; Z82.49 Family history of ischemic heart disease and other diseases of the circulatory system; Z83.3 Family history of diabetes mellitus; Z84.1 Family history of disorders of kidney and ureter; X58.XXXA Exposure to other specified factors, initial encounter; Y93.89 Activity, other specified; Y92.89 Other specified places as the place of occurrence of the external cause; Y99.8 Other external cause status

== ENCOUNTER 2025-03-14 16:02 | Inpatient (IN) | payer OTHER, MEDICAID ==
[~2025-03-14] VITALS: Ht 165.1 cm; Wt 65.3 kg
[~2025-03-14 16:02] MED LIST changes: +LASIX20 MG PO; +MIDODRINE HCL5 M1 PO; +NOVOLOG100 UNIT/1 SC
[2025-03-14 16:19] VITALS: BP 101/38
[2025-03-14 16:36] LABS: BASO # 0.0 10*3/uL (0.0-0.1); BASO % 0.6 % (0.0-1.0); EOS # 0.0 10*3/uL (0.0-0.4); EOS % 0.0 % (1.0-4.0); MEAN CELL VOLUME 76.6 fl (81.0-99.0); MEAN CORPUSCULAR HGB 22.8 pg (27.0-31.0); MEAN PLATELET VOLUME 9.4 fl (9.6-12.3); MONO # 0.4 10*3/uL (0.1-1.0); MONO % 7.8 % (3.0-9.0); NEUT # 3.2 10*3/uL (2.3-7.9); NEUT % 63.5 % (47.0-73.0); NUCLEATED RED BLOOD CELL 0.0 % (0.0-0.0); NUCLEATED RED BLOOD CELL 0.0 10*3/uL (0.0-0.0); PLATELET COUNT AUTOMATED 174 10*3/uL (130-400); RED CELL DISTRI WIDTH 17.1 % (0-14.5)
[2025-03-14 16:55] LABS: BUN 29.0 mg/dl (9-23)
[2025-03-14] MEDS ORDERED: FUROSEMIDE 20 MG/2 ML VIAL IV ONE (18:50)
[2025-03-14] MEDS ORDERED: BISACODYL 5 MG TAB PO PRN (19:10)
[2025-03-14] MEDS ORDERED: ACETAMINOPHEN 650 MG SUPP R PRN (19:10)
[2025-03-14] MEDS ORDERED: Ondansetron Hydrochloride 4 MG/2 ML VIAL IV PRN (19:10)
[2025-03-14] MEDS ORDERED: BISACODYL 10 MG SUPP R PRN (19:10)
[2025-03-14] MEDS ORDERED: TEMAZEPAM 15 MG CAP PO PRN (19:10)
[2025-03-14] MEDS ORDERED: ACETAMINOPHEN 325 MG TAB PO PRN (19:10)
[2025-03-14] MEDS ORDERED: MIDODRINE HCL5 M1 PO (19:23)
[2025-03-14] MEDS ORDERED: MECLIZINE HCL25 M2 PO (19:24)
[2025-03-14 19:35] VITALS: BP 138/47
[2025-03-14] MEDS ORDERED: ATORVASTATIN CALCIUM 80 MG TAB PO SCH (22:00)
[2025-03-14 22:51] VITALS: BP 141/54
[2025-03-15 06:00] VITALS: BP 129/65
[2025-03-15] MEDS ORDERED: FUROSEMIDE 20 MG/2 ML VIAL IV SCH (06:00)
[2025-03-15] MEDS ORDERED: OMEPRAZOLE 20 MG CAP PO SCH (06:00)
[2025-03-15 06:29] LABS: BUN 25.0 mg/dl (9-23); SGPT/ALT 15.0 U/L (5-49)
[2025-03-15 06:41] LABS: BASO # 0.0 10*3/uL (0.0-0.1); BASO % 0.6 % (0.0-1.0); EOS # 0.0 10*3/uL (0.0-0.4); EOS % 0.0 % (1.0-4.0); MEAN CELL VOLUME 77.1 fl (81.0-99.0); MEAN CORPUSCULAR HGB 22.9 pg (27.0-31.0); MEAN PLATELET VOLUME 10.1 fl (9.6-12.3); MONO # 0.4 10*3/uL (0.1-1.0); MONO % 7.4 % (3.0-9.0); NEUT # 3.2 10*3/uL (2.3-7.9); NEUT % 62.3 % (47.0-73.0); NUCLEATED RED BLOOD CELL 0.0 % (0.0-0.0); NUCLEATED RED BLOOD CELL 0.0 10*3/uL (0.0-0.0); PLATELET COUNT AUTOMATED 192 10*3/uL (130-400); RED CELL DISTRI WIDTH 17.2 % (0-14.5)
[2025-03-15] MEDS ORDERED: Midodrine Hydrochloride 5 MG TAB PO SCH (07:00)
[2025-03-15 08:00] VITALS: BP 127/51
[2025-03-15] MEDS ORDERED: Insulin Glargine, Recombinan 1 UNIT/0.01 ML SC SCH (10:00)
[2025-03-15] MEDS ORDERED: ASPIRIN ENTERIC COATED 81 MG TAB PO SCH (10:00)
[2025-03-15] MEDS ORDERED: Clopidogrel Hydrogen Sulfate 75 MG TAB PO SCH (10:00)
[2025-03-15] MEDS ORDERED: LINACLOTIDE 145 MCG CAP PO SCH (10:00)
[2025-03-15 12:00] VITALS: BP 106/46
[2025-03-15 16:00] VITALS: BP 126/52
[2025-03-15 20:00] VITALS: BP 132/52
[2025-03-16] VITALS: BP 116/51
[2025-03-16 07:21] LABS: BUN 35.0 mg/dl (9-23)
[2025-03-16 08:00] VITALS: BP 131/55
[2025-03-16] MEDS ORDERED: SPIRONOLACTONE 25 MG TAB PO SCH (10:00)
[2025-03-16] MEDS ORDERED: EMPAGLIFLOZIN 10 MG TABLET PO SCH (10:00)
[2025-03-16] MEDS ORDERED: LISINOPRIL 2.5 MG TAB PO SCH (10:00)
[2025-03-16 12:00] VITALS: BP 110/54
[2025-03-16] MEDS ORDERED: LISINOPRIL2.5 MG PO (14:22)
[2025-03-16] MEDS ORDERED: ALDACTONE25 MG PO (14:22)
== END 2025-03-16 15:25 | disposition home or self-care (01) | DRG 291 ==
LOC: ED 16:02 → EDHOLD 19:03 → 5E 22:24
PROVIDERS: Internal Medicine; Student in an Organized Health Care Education/Training Program; ADMIT Student in an Organized Health Care Education/Training Program; ATTEND Student in an Organized Health Care Education/Training Program
DX: I13.0 Hypertensive heart and chronic kidney disease with heart failure and stage 1 through stage 4 chronic kidney disease, or unspecified chronic kidney disease (principal); I50.23 Acute on chronic systolic (congestive) heart failure; N17.0 Acute kidney failure with tubular necrosis; I38 Endocarditis, valve unspecified; F41.1 Generalized anxiety disorder; D50.9 Iron deficiency anemia, unspecified; E11.42 Type 2 diabetes mellitus with diabetic polyneuropathy; E11.65 Type 2 diabetes mellitus with hyperglycemia; K21.9 Gastro-esophageal reflux disease without esophagitis; I25.10 Atherosclerotic heart disease of native coronary artery without angina pectoris; E78.5 Hyperlipidemia, unspecified; E78.2 Mixed hyperlipidemia; N18.32 Chronic kidney disease, stage 3b; I95.1 Orthostatic hypotension; I27.20 Pulmonary hypertension, unspecified; E03.9 Hypothyroidism, unspecified; Z90.89 Acquired absence of other organs; Z90.49 Acquired absence of other specified parts of digestive tract; Z90.710 Acquired absence of both cervix and uterus; Z79.4 Long term (current) use of insulin; Z71.89 Other specified counseling; Z95.5 Presence of coronary angioplasty implant and graft; Z82.49 Family history of ischemic heart disease and other diseases of the circulatory system; Z83.3 Family history of diabetes mellitus; Z84.1 Family history of disorders of kidney and ureter; Z79.82 Long term (current) use of aspirin; Z79.899 Other long term (current) drug therapy; Z88.5 Allergy status to narcotic agent

== ENCOUNTER 2025-03-22 18:53 | Emergency (ER) | payer OTHER, MEDICAID ==
[~2025-03-22] VITALS: Ht 165.1 cm; Wt 64.9 kg
[~2025-03-22 18:53] MED LIST changes: +ALDACTONE25 MG PO
[2025-03-22 20:08] LABS: BASO # 0.0 10*3/uL (0.0-0.1); BASO % 0.5 % (0.0-1.0); EOS # 0.0 10*3/uL (0.0-0.4); EOS % 0.0 % (1.0-4.0); MEAN CELL VOLUME 75.7 fl (81.0-99.0); MEAN CORPUSCULAR HGB 23.2 pg (27.0-31.0); MEAN PLATELET VOLUME 9.2 fl (9.6-12.3); MONO # 0.5 10*3/uL (0.1-1.0); MONO % 8.0 % (3.0-9.0); NEUT # 3.4 10*3/uL (2.3-7.9); NEUT % 60.2 % (47.0-73.0); NUCLEATED RED BLOOD CELL 0.0 % (0.0-0.0); NUCLEATED RED BLOOD CELL 0.0 10*3/uL (0.0-0.0); PLATELET COUNT AUTOMATED 214 10*3/uL (130-400); RED CELL DISTRI WIDTH 16.9 % (0-14.5)
[2025-03-22 20:30] LABS: BUN 44.0 mg/dl (9-23)
[2025-03-22 20:52] LABS: BILIRUBIN Negative (Negative); BLOOD 1+ (Negative); CLARITY Clear (Clear); COLOR Yellow (Yellow); KETONE Negative (Negative); LEUKO ESTERASE 1+ (Negative); NITRITE Negative (Negative); PH 6.5 (4.5-8.0); SPECIFIC GRAVITY 1.010 (1.001-1.030); UROBILINOGEN 0.2 E.U./dl (0.0-1.0)
[2025-03-22 20:59] LABS: MUCOUS 1+
== END 2025-03-23 00:03 | disposition home or self-care (01) ==
LOC: ED 18:53
PROVIDERS: Nurse Practitioner Family
DX: I13.0 Hypertensive heart and chronic kidney disease with heart failure and stage 1 through stage 4 chronic kidney disease, or unspecified chronic kidney disease (principal); E11.22 Type 2 diabetes mellitus with diabetic chronic kidney disease; N18.32 Chronic kidney disease, stage 3b; E78.6 Lipoprotein deficiency; I50.9 Heart failure, unspecified; R06.02 Shortness of breath

== ENCOUNTER 2025-04-17 12:05 | Observation (INO) | payer OTHER, MEDICAID ==
[~2025-04-17] VITALS: Ht 165.1 cm; Wt 63.8 kg
[~2025-04-17 12:05] MED LIST changes: +RANOLAZINE ER500 MG PO
[2025-04-17 12:21] VITALS: BP 90/54
[2025-04-17 12:42] LABS: BASO # 0.0 10*3/uL (0.0-0.1); BASO % 0.4 % (0.0-1.0); EOS # 0.0 10*3/uL (0.0-0.4); EOS % 0.0 % (1.0-4.0); MEAN CELL VOLUME 78.9 fl (81.0-99.0); MEAN CORPUSCULAR HGB 24.1 pg (27.0-31.0); MEAN PLATELET VOLUME 8.7 fl (9.6-12.3); MONO # 0.4 10*3/uL (0.1-1.0); MONO % 7.6 % (3.0-9.0); NEUT # 3.5 10*3/uL (2.3-7.9); NEUT % 68.1 % (47.0-73.0); NUCLEATED RED BLOOD CELL 0.0 % (0.0-0.0); NUCLEATED RED BLOOD CELL 0.0 10*3/uL (0.0-0.0); PLATELET COUNT AUTOMATED 218 10*3/uL (130-400); RED CELL DISTRI WIDTH 19.5 % (0-14.5)
[2025-04-17 13:01] LABS: BUN 37.0 mg/dl (9-23)
[2025-04-17 13:06] LABS: ACT PARTIAL THROMBO TIME 24.3 SECONDS (20.0-32.1)
[2025-04-17 14:52] LABS: BILIRUBIN Negative (Negative); BLOOD Negative (Negative); CLARITY Turbid (Clear); COLOR Yellow (Yellow); KETONE Trace (Negative); LEUKO ESTERASE 3+ (Negative); NITRITE Negative (Negative); SPECIFIC GRAVITY 1.020 (1.001-1.030); UROBILINOGEN 1.0 E.U./dl (0.0-1.0)
[2025-04-17 14:53] LABS: PH >= 9.0 (4.5-8.0)
[2025-04-17 15:07] LABS: BACTERIA 4+
[2025-04-17] MEDS ORDERED: Ondansetron Hydrochloride 4 MG/2 ML VIAL IV PRN (16:30)
[2025-04-17 16:50] VITALS: BP 138/40
[2025-04-17] MEDS ORDERED: DEXTROSE 50% 25 GM/50 ML VIAL IV PRN (16:55)
[2025-04-17] MEDS ORDERED: JARDIANCE10 MG PO (17:59)
[2025-04-17] MEDS ORDERED: IMDUR SA30 MG PO (17:59)
[2025-04-17] MEDS ORDERED: RANOLAZINE ER500 MG PO (17:59)
[2025-04-17] MEDS ORDERED: BARIUM SULFATE 2% 450 ML BOT PO SCH (18:00)
[2025-04-17 20:00] VITALS: BP 119/70
[2025-04-17] MEDS ORDERED: INSULIN LISPRO 1 UNIT/0.01 ML SQ SCH (22:00)
[2025-04-18] VITALS: BP 120/40
[2025-04-18 06:27] LABS: ACT PARTIAL THROMBO TIME 24.2 SECONDS (20.0-32.1)
[2025-04-18 06:29] LABS: BUN 37.0 mg/dl (9-23); SGPT/ALT 14.0 U/L (5-49)
[2025-04-18 06:46] LABS: BASO # 0.0 10*3/uL (0.0-0.1); BASO % 0.7 % (0.0-1.0); EOS # 0.0 10*3/uL (0.0-0.4); EOS % 0.0 % (1.0-4.0); MEAN CELL VOLUME 80.3 fl (81.0-99.0); MEAN CORPUSCULAR HGB 23.9 pg (27.0-31.0); MEAN PLATELET VOLUME 9.7 fl (9.6-12.3); MONO # 0.3 10*3/uL (0.1-1.0); MONO % 7.4 % (3.0-9.0); NEUT # 2.8 10*3/uL (2.3-7.9); NEUT % 61.8 % (47.0-73.0); NUCLEATED RED BLOOD CELL 0.0 % (0.0-0.0); NUCLEATED RED BLOOD CELL 0.0 10*3/uL (0.0-0.0); PLATELET COUNT AUTOMATED 236 10*3/uL (130-400); RED CELL DISTRI WIDTH 19.7 % (0-14.5)
[2025-04-18 08:00] VITALS: BP 123/48
[2025-04-18] MEDS ORDERED: CIPRO500 MG PO (12:35)
[2025-04-18] MEDS ORDERED: NYSTATIN 15 GM BOT T SCH (22:00)
== END 2025-04-18 13:30 | disposition home or self-care (01) ==
LOC: ED 12:05 → 5E 15:20 → EDHOLD 15:20 → 5E 15:53
PROVIDERS: Nurse Practitioner Family; ADMIT Internal Medicine; ATTEND Internal Medicine
DX: N30.00 Acute cystitis without hematuria (principal); R07.89 Other chest pain; R06.01 Orthopnea; E83.41 Hypermagnesemia; D50.9 Iron deficiency anemia, unspecified; R79.89 Other specified abnormal findings of blood chemistry; E11.42 Type 2 diabetes mellitus with diabetic polyneuropathy; E11.65 Type 2 diabetes mellitus with hyperglycemia; I11.0 Hypertensive heart disease with heart failure; I50.20 Unspecified systolic (congestive) heart failure; I25.10 Atherosclerotic heart disease of native coronary artery without angina pectoris; E78.5 Hyperlipidemia, unspecified; Z79.899 Other long term (current) drug therapy

== ENCOUNTER 2025-04-21 00:26 | Emergency (ER) | payer OTHER, MEDICAID ==
[~2025-04-21] VITALS: Ht 167.6 cm; Wt 66.9 kg
[2025-04-21 00:59] LABS: BASO # 0.0 10*3/uL (0.0-0.1); BASO % 0.6 % (0.0-1.0); EOS # 0.0 10*3/uL (0.0-0.4); EOS % 0.0 % (1.0-4.0); MEAN CELL VOLUME 80.4 fl (81.0-99.0); MEAN CORPUSCULAR HGB 24.3 pg (27.0-31.0); MEAN PLATELET VOLUME 8.7 fl (9.6-12.3); MONO # 0.3 10*3/uL (0.1-1.0); MONO % 6.5 % (3.0-9.0); NEUT # 3.3 10*3/uL (2.3-7.9); NEUT % 62.4 % (47.0-73.0); NUCLEATED RED BLOOD CELL 0.0 % (0.0-0.0); NUCLEATED RED BLOOD CELL 0.0 10*3/uL (0.0-0.0); PLATELET COUNT AUTOMATED 229 10*3/uL (130-400); RED CELL DISTRI WIDTH 19.3 % (0-14.5)
[2025-04-21 01:22] LABS: ACT PARTIAL THROMBO TIME 23.8 SECONDS (20.0-32.1)
[2025-04-21 01:27] LABS: BUN 36.0 mg/dl (9-23); SGPT/ALT 13.0 U/L (5-49)
[2025-04-21 02:22] LABS: BILIRUBIN Negative (Negative); BLOOD Negative (Negative); CLARITY Clear (Clear); COLOR Yellow (Yellow); KETONE Negative (Negative); LEUKO ESTERASE 2+ (Negative); NITRITE Negative (Negative); SPECIFIC GRAVITY 1.020 (1.001-1.030); UROBILINOGEN 0.2 E.U./dl (0.0-1.0)
[2025-04-21 02:40] LABS: EPITHELIAL CELLS 16-20; PH 8.5 (4.5-8.0)
[2025-04-21 02:41] LABS: BACTERIA TRACE; WBC 16-20 wbc/hpf (0-5)
[2025-04-21] MEDS ORDERED: ZYRTEC ALLERGY10 MG PO (03:27)
[2025-04-21] MEDS ORDERED: NASONEX 24HR AL17 ML NAS (03:27)
== END 2025-04-21 03:25 | disposition home or self-care (01) ==
LOC: ED 00:26
DX: J06.9 Acute upper respiratory infection, unspecified (principal); R07.89 Other chest pain; N39.0 Urinary tract infection, site not specified; E11.40 Type 2 diabetes mellitus with diabetic neuropathy, unspecified; E78.5 Hyperlipidemia, unspecified; I25.10 Atherosclerotic heart disease of native coronary artery without angina pectoris; I12.9 Hypertensive chronic kidney disease with stage 1 through stage 4 chronic kidney disease, or unspecified chronic kidney disease; E11.22 Type 2 diabetes mellitus with diabetic chronic kidney disease; N18.9 Chronic kidney disease, unspecified; Z90.49 Acquired absence of other specified parts of digestive tract; Z90.710 Acquired absence of both cervix and uterus; Z87.440 Personal history of urinary (tract) infections; Z88.5 Allergy status to narcotic agent

== ENCOUNTER 2025-05-11 05:14 | Inpatient (IN) | payer OTHER, MEDICAID ==
[~2025-05-11] VITALS: Ht 165.1 cm; Wt 65.5 kg
[~2025-05-11 05:14] MED LIST changes: +CLOTRIMAZOLE45 G1 T; +NASONEX 24HR AL17 ML NAS; +ZYRTEC ALLERGY10 MG PO
[2025-05-11 05:35] VITALS: BP 140/73
[2025-05-11 06:35] LABS: BASO # 0.0 10*3/uL (0.0-0.1); BASO % 0.4 % (0.0-1.0); EOS # 0.0 10*3/uL (0.0-0.4); EOS % 0.0 % (1.0-4.0); MEAN CELL VOLUME 81.9 fl (81.0-99.0); MEAN CORPUSCULAR HGB 25.2 pg (27.0-31.0); MEAN PLATELET VOLUME 9.5 fl (9.6-12.3); MONO # 0.4 10*3/uL (0.1-1.0); MONO % 7.2 % (3.0-9.0); NEUT # 4.0 10*3/uL (2.3-7.9); NEUT % 70.8 % (47.0-73.0); NUCLEATED RED BLOOD CELL 0.0 % (0.0-0.0); NUCLEATED RED BLOOD CELL 0.0 10*3/uL (0.0-0.0); PLATELET COUNT AUTOMATED 173 10*3/uL (130-400); RED CELL DISTRI WIDTH 18.6 % (0-14.5)
[2025-05-11 07:02] LABS: BUN 32.0 mg/dl (9-23); SGPT/ALT 13.0 U/L (5-49)
[2025-05-11 08:57] VITALS: BP 173/67
[2025-05-11] MEDS ORDERED: BISACODYL 5 MG TAB PO PRN (12:25)
[2025-05-11] MEDS ORDERED: ACETAMINOPHEN 325 MG TAB PO PRN (12:25)
[2025-05-11] MEDS ORDERED: DEXTROSE 50% 25 GM/50 ML VIAL IV PRN (12:40)
[2025-05-11] MEDS ORDERED: FUROSEMIDE 40 MG/4 ML VIAL IV SCH (13:50)
[2025-05-11 16:00] VITALS: BP 124/45
[2025-05-11] MEDS ORDERED: INSULIN LISPRO 1 UNIT/0.01 ML SQ SCH (16:30)
[2025-05-11 20:00] VITALS: BP 107/38
[2025-05-12] VITALS: BP 103/45
[2025-05-12 06:36] LABS: BASO # 0.0 10*3/uL (0.0-0.1); BASO % 0.6 % (0.0-1.0); EOS # 0.0 10*3/uL (0.0-0.4); EOS % 0.0 % (1.0-4.0); MEAN CELL VOLUME 82.2 fl (81.0-99.0); MEAN CORPUSCULAR HGB 25.1 pg (27.0-31.0); MEAN PLATELET VOLUME 9.4 fl (9.6-12.3); MONO # 0.4 10*3/uL (0.1-1.0); MONO % 8.5 % (3.0-9.0); NEUT # 2.9 10*3/uL (2.3-7.9); NEUT % 60.3 % (47.0-73.0); NUCLEATED RED BLOOD CELL 0.0 % (0.0-0.0); NUCLEATED RED BLOOD CELL 0.0 10*3/uL (0.0-0.0); PLATELET COUNT AUTOMATED 164 10*3/uL (130-400); RED CELL DISTRI WIDTH 18.7 % (0-14.5)
[2025-05-12 07:13] LABS: BUN 31.0 mg/dl (9-23); LDL CHOLESTEROL 54.0 mg/dL (9-159); SGPT/ALT 11.0 U/L (5-49)
[2025-05-12 08:00] VITALS: BP 108/50
[2025-05-12] MEDS ORDERED: FUROSEMIDE 40 MG/4 ML VIAL IV SCH (10:00)
[2025-05-12 11:00] VITALS: BP 108/50
[2025-05-12] MEDS ORDERED: Cyclobenzaprine Hydrochlorid 10 MG TAB PO PRN (11:45)
[2025-05-12 16:00] VITALS: BP 120/54
[2025-05-12] MEDS ORDERED: LINACLOTIDE 145 MCG CAP PO ONE (17:50)
[2025-05-12 20:00] VITALS: BP 117/42
[2025-05-12] MEDS ORDERED: Ranolazine 500 MG TAB ER PO SCH (22:00)
[2025-05-12] MEDS ORDERED: ATORVASTATIN CALCIUM 80 MG TAB PO SCH (22:00)
[2025-05-12] MEDS ORDERED: FAMOTIDINE 10 MG TAB PO SCH (22:00)
[2025-05-12] MEDS ORDERED: GABAPENTIN 300 MG CAP PO SCH (22:00)
[2025-05-12] MEDS ORDERED: CARVEDILOL 3.125 MG TAB PO SCH (22:00)
[2025-05-13] VITALS: BP 123/41
[2025-05-13] MEDS ORDERED: OMEPRAZOLE 20 MG CAP PO SCH (06:00)
[2025-05-13 06:27] LABS: BASO # 0.0 10*3/uL (0.0-0.1); BASO % 0.2 % (0.0-1.0); EOS # 0.0 10*3/uL (0.0-0.4); EOS % 0.0 % (1.0-4.0); MEAN CELL VOLUME 82.2 fl (81.0-99.0); MEAN CORPUSCULAR HGB 25.3 pg (27.0-31.0); MEAN PLATELET VOLUME 9.8 fl (9.6-12.3); MONO # 0.1 10*3/uL (0.1-1.0); MONO % 1.8 % (3.0-9.0); NEUT # 4.1 10*3/uL (2.3-7.9); NEUT % 82.5 % (47.0-73.0); NUCLEATED RED BLOOD CELL 0.0 % (0.0-0.0); NUCLEATED RED BLOOD CELL 0.0 10*3/uL (0.0-0.0); PLATELET COUNT AUTOMATED 173 10*3/uL (130-400); RED CELL DISTRI WIDTH 18.5 % (0-14.5)
[2025-05-13 06:58] LABS: BUN 39.0 mg/dl (9-23)
[2025-05-13 08:00] VITALS: BP 140/54
[2025-05-13] MEDS ORDERED: SODIUM POLYSTYRENE SULFONATE 15 GM/60 ML BOT PO ONE (08:20)
[2025-05-13] MEDS ORDERED: LINACLOTIDE 145 MCG CAP PO SCH (10:00)
[2025-05-13] MEDS ORDERED: Insulin Glargine, Recombinan 1 UNIT/0.01 ML SC SCH (10:00)
[2025-05-13] MEDS ORDERED: ISOSORBIDE MONONITRATE 30 MG TAB PO SCH (10:00)
[2025-05-13] MEDS ORDERED: FUROSEMIDE 20 MG TAB PO SCH (10:00)
[2025-05-13] MEDS ORDERED: Clopidogrel Hydrogen Sulfate 75 MG TAB PO SCH (10:00)
[2025-05-13] MEDS ORDERED: ASPIRIN ENTERIC COATED 81 MG TAB PO SCH (10:00)
[2025-05-13] MEDS ORDERED: EMPAGLIFLOZIN 10 MG TABLET PO SCH (10:00)
[2025-05-13 12:00] VITALS: BP 122/44
[2025-05-13 12:09] LABS: BUN 41.0 mg/dl (9-23)
[2025-05-13] MEDS ORDERED: PREDNISONE50 MG PO (14:01)
[2025-05-13] MEDS ORDERED: CYCLOBENZAPRINE5 M3 PO (14:01)
== END 2025-05-13 15:22 | disposition home or self-care (01) | DRG 291 ==
LOC: ED 05:14 → 5E 09:04 → EDHOLD 09:04 → 5E 10:51
PROVIDERS: Emergency Medicine; Internal Medicine; ADMIT Family Medicine; ATTEND Family Medicine
DX: I13.0 Hypertensive heart and chronic kidney disease with heart failure and stage 1 through stage 4 chronic kidney disease, or unspecified chronic kidney disease (principal); I50.23 Acute on chronic systolic (congestive) heart failure; D64.9 Anemia, unspecified; E11.22 Type 2 diabetes mellitus with diabetic chronic kidney disease; E11.65 Type 2 diabetes mellitus with hyperglycemia; N18.32 Chronic kidney disease, stage 3b; Z66 Do not resuscitate; I25.10 Atherosclerotic heart disease of native coronary artery without angina pectoris; E78.5 Hyperlipidemia, unspecified; E11.42 Type 2 diabetes mellitus with diabetic polyneuropathy; E83.41 Hypermagnesemia; M54.9 Dorsalgia, unspecified; Z88.8 Allergy status to other drugs, medicaments and biological substances; Z91.09 Other allergy status, other than to drugs and biological substances; Z79.899 Other long term (current) drug therapy; Z79.01 Long term (current) use of anticoagulants; Z79.2 Long term (current) use of antibiotics; Z90.49 Acquired absence of other specified parts of digestive tract; Z90.710 Acquired absence of both cervix and uterus; Z95.5 Presence of coronary angioplasty implant and graft; Z82.49 Family history of ischemic heart disease and other diseases of the circulatory system; Z83.3 Family history of diabetes mellitus; Z84.19 Family history of other disorders of kidney and ureter

== ENCOUNTER 2025-05-14 06:20 | Inpatient (IN) | payer OTHER, MEDICAID ==
[~2025-05-14] VITALS: Ht 165.1 cm; Wt 63.5 kg
[~2025-05-14 06:20] MED LIST changes: +CYCLOBENZAPRINE5 M3 PO
[2025-05-14 06:32] VITALS: BP 143/78
[2025-05-14 06:45] LABS: BASO # 0.0 10*3/uL (0.0-0.1); BASO % 0.1 % (0.0-1.0); EOS # 0.0 10*3/uL (0.0-0.4); EOS % 0.0 % (1.0-4.0); MEAN CELL VOLUME 81.4 fl (81.0-99.0); MEAN CORPUSCULAR HGB 25.0 pg (27.0-31.0); MEAN PLATELET VOLUME 9.4 fl (9.6-12.3); MONO # 0.5 10*3/uL (0.1-1.0); MONO % 3.8 % (3.0-9.0); NEUT # 12.7 10*3/uL (2.3-7.9); NEUT % 88.3 % (47.0-73.0); NUCLEATED RED BLOOD CELL 0.0 % (0.0-0.0); NUCLEATED RED BLOOD CELL 0.0 10*3/uL (0.0-0.0); PLATELET COUNT AUTOMATED 211 10*3/uL (130-400); RED CELL DISTRI WIDTH 18.6 % (0-14.5)
[2025-05-14 07:06] LABS: BUN 45.0 mg/dl (9-23)
[2025-05-14 08:15] VITALS: BP 160/77
[2025-05-14] MEDS ORDERED: Ondansetron Hydrochloride 4 MG/2 ML VIAL IV ONE (08:30)
[2025-05-14] MEDS ORDERED: NITROGLYCERIN 1 IN PACKET T ONE (08:35)
[2025-05-14] MEDS ORDERED: ASPIRIN 325 MG ENTERIC COATED PO ONE (08:35)
[2025-05-14] MEDS ORDERED: Ondansetron Hydrochloride 4 MG/2 ML VIAL IV PRN (10:10)
[2025-05-14 10:15] VITALS: BP 146/65
[2025-05-14] MEDS ORDERED: CARVEDILOL 3.125 MG TAB PO SCH (11:50)
[2025-05-14] MEDS ORDERED: FUROSEMIDE 20 MG TAB PO SCH (11:50)
[2025-05-14] MEDS ORDERED: Clopidogrel Hydrogen Sulfate 75 MG TAB PO SCH (11:50)
[2025-05-14 15:47] VITALS: BP 139/69
[2025-05-14] MEDS ORDERED: Cyclobenzaprine Hydrochlorid 10 MG TAB PO PRN (17:10)
[2025-05-14] MEDS ORDERED: FUROSEMIDE 40 MG/4 ML VIAL IV SCH (18:00)
[2025-05-14 20:00] VITALS: BP 149/66
[2025-05-14] MEDS ORDERED: ATORVASTATIN CALCIUM 80 MG TAB PO SCH (22:00)
[2025-05-14] MEDS ORDERED: Ranolazine 500 MG TAB ER PO SCH (22:00)
[2025-05-14] MEDS ORDERED: GABAPENTIN 300 MG CAP PO SCH (22:00)
[2025-05-15] VITALS (7 sets, daily range): BP systolic 73–131; BP diastolic 35–61
[2025-05-15 06:01] LABS: BUN 46.0 mg/dl (9-23)
[2025-05-15 06:09] LABS: BASO # 0.0 10*3/uL (0.0-0.1); BASO % 0.0 % (0.0-1.0); EOS # 0.0 10*3/uL (0.0-0.4); EOS % 0.0 % (1.0-4.0); MEAN CELL VOLUME 82.1 fl (81.0-99.0); MEAN CORPUSCULAR HGB 25.2 pg (27.0-31.0); MEAN PLATELET VOLUME 9.8 fl (9.6-12.3); MONO # 0.4 10*3/uL (0.1-1.0); MONO % 4.4 % (3.0-9.0); NEUT # 8.8 10*3/uL (2.3-7.9); NEUT % 87.4 % (47.0-73.0); NUCLEATED RED BLOOD CELL 0.0 % (0.0-0.0); NUCLEATED RED BLOOD CELL 0.0 10*3/uL (0.0-0.0); PLATELET COUNT AUTOMATED 197 10*3/uL (130-400); RED CELL DISTRI WIDTH 18.9 % (0-14.5)
[2025-05-15] MEDS ORDERED: SODIUM POLYSTYRENE SULFONATE 15 GM/60 ML BOT PO ONE (07:45)
[2025-05-15] MEDS ORDERED: EMPAGLIFLOZIN 10 MG TABLET PO SCH (10:00)
[2025-05-15] MEDS ORDERED: ISOSORBIDE MONONITRATE 30 MG TAB PO SCH (10:00)
[2025-05-15] MEDS ORDERED: Insulin Glargine, Recombinan 1 UNIT/0.01 ML SC SCH (10:00)
[2025-05-15] MEDS ORDERED: ASPIRIN ENTERIC COATED 81 MG TAB PO SCH (10:00)
[2025-05-15] MEDS ORDERED: SODIUM CHLORIDE 0.9% 500 ML IV ONE ×2 (16:20→19:50)
[2025-05-15] MEDS ORDERED: FOAM BANDAGE 5X5 T ONE (17:28)
[2025-05-15] MEDS ORDERED: FUROSEMIDE 20 MG/2 ML VIAL IV SCH (18:00)
[2025-05-15] MEDS ORDERED: MICONAZOLE NITRATE 2% 75 GM BOT T SCH (22:00)
[2025-05-15] MEDS ORDERED: Midodrine Hydrochloride 5 MG TAB PO ONE (22:35)
[2025-05-16] VITALS (9 sets, daily range): BP systolic 82–115; BP diastolic 40–51
[2025-05-16] MEDS ORDERED: Midodrine Hydrochloride 5 MG TAB PO ONE (01:25)
[2025-05-16 06:03] LABS: BUN 56.0 mg/dl (9-23)
[2025-05-16 06:08] LABS: BASO # 0.0 10*3/uL (0.0-0.1); BASO % 0.2 % (0.0-1.0); EOS # 0.0 10*3/uL (0.0-0.4); EOS % 0.2 % (1.0-4.0); MEAN CELL VOLUME 84.3 fl (81.0-99.0); MEAN CORPUSCULAR HGB 25.5 pg (27.0-31.0); MEAN PLATELET VOLUME 10.1 fl (9.6-12.3); MONO # 0.5 10*3/uL (0.1-1.0); MONO % 8.9 % (3.0-9.0); NEUT # 3.1 10*3/uL (2.3-7.9); NEUT % 59.7 % (47.0-73.0); NUCLEATED RED BLOOD CELL 0.0 % (0.0-0.0); NUCLEATED RED BLOOD CELL 0.0 10*3/uL (0.0-0.0); PLATELET COUNT AUTOMATED 151 10*3/uL (130-400); RED CELL DISTRI WIDTH 19.2 % (0-14.5)
[2025-05-16] MEDS ORDERED: Insulin Glargine, Recombinan 1 UNIT/0.01 ML SC SCH (10:00)
[2025-05-17] VITALS: BP 106/45
[2025-05-17 06:09] LABS: BUN 53.0 mg/dl (9-23)
[2025-05-17 06:26] LABS: BASO # 0.0 10*3/uL (0.0-0.1); BASO % 0.4 % (0.0-1.0); EOS # 0.0 10*3/uL (0.0-0.4); EOS % 0.2 % (1.0-4.0); MEAN CELL VOLUME 83.8 fl (81.0-99.0); MEAN CORPUSCULAR HGB 25.6 pg (27.0-31.0); MEAN PLATELET VOLUME 10.0 fl (9.6-12.3); MONO # 0.5 10*3/uL (0.1-1.0); MONO % 10.0 % (3.0-9.0); NEUT # 3.0 10*3/uL (2.3-7.9); NEUT % 59.5 % (47.0-73.0); NUCLEATED RED BLOOD CELL 0.0 % (0.0-0.0); NUCLEATED RED BLOOD CELL 0.0 10*3/uL (0.0-0.0); PLATELET COUNT AUTOMATED 168 10*3/uL (130-400); RED CELL DISTRI WIDTH 18.7 % (0-14.5)
[2025-05-17 08:00] VITALS: BP 122/58
[2025-05-17] MEDS ORDERED: CARVEDILOL3.125 MG PO (08:36)
[2025-05-17] MEDS ORDERED: FUROSEMIDE 20 MG TAB PO SCH (10:00)
[2025-05-17] MEDS ORDERED: Protector, Heel/Elbow (PAIR) DEVICE ONE (11:47)
[2025-05-17 12:00] VITALS: BP 129/55
[2025-05-17] MEDS ORDERED: Midodrine Hydrochloride 5 MG TAB PO SCH (13:45)
[2025-05-17] MEDS ORDERED: SODIUM CHLORIDE 0.9% 500 ML IV ONE (13:50)
[2025-05-17 16:00] VITALS: BP 97/46
[2025-05-17 20:00] VITALS: BP 108/54; BP 151/84
[2025-05-17] MEDS ORDERED: LINACLOTIDE 145 MCG CAP PO SCH (22:00)
[2025-05-18] VITALS: BP 111/52
[2025-05-18 06:28] LABS: BUN 45.0 mg/dl (9-23)
[2025-05-18 08:00] VITALS: BP 110/52
[2025-05-18] MEDS ORDERED: CARVEDILOL 3.125 MG TAB PO SCH (10:00)
[2025-05-18 12:00] VITALS: BP 106/46
[2025-05-18] MEDS ORDERED: FOAM BANDAGE 5X5 T ONE (12:06)
== END 2025-05-18 12:17 | disposition home health service (06) | DRG 280 ==
LOC: ED 06:20 → EDHOLD 08:54 → 5E 08:54
PROVIDERS: Internal Medicine; ADMIT Internal Medicine; ATTEND Internal Medicine
DX: I21.4 Non-ST elevation (NSTEMI) myocardial infarction (principal); I50.23 Acute on chronic systolic (congestive) heart failure; N17.0 Acute kidney failure with tubular necrosis; I13.0 Hypertensive heart and chronic kidney disease with heart failure and stage 1 through stage 4 chronic kidney disease, or unspecified chronic kidney disease; I25.10 Atherosclerotic heart disease of native coronary artery without angina pectoris; I27.20 Pulmonary hypertension, unspecified; E11.42 Type 2 diabetes mellitus with diabetic polyneuropathy; N28.89 Other specified disorders of kidney and ureter; E11.22 Type 2 diabetes mellitus with diabetic chronic kidney disease; Z66 Do not resuscitate; D64.9 Anemia, unspecified; N18.32 Chronic kidney disease, stage 3b; E83.41 Hypermagnesemia; E11.65 Type 2 diabetes mellitus with hyperglycemia; E87.5 Hyperkalemia; D72.829 Elevated white blood cell count, unspecified; E78.5 Hyperlipidemia, unspecified; Z88.8 Allergy status to other drugs, medicaments and biological substances; Z90.710 Acquired absence of both cervix and uterus; Z90.49 Acquired absence of other specified parts of digestive tract; Z95.1 Presence of aortocoronary bypass graft; Z83.3 Family history of diabetes mellitus; Z79.4 Long term (current) use of insulin; Z85.42 Personal history of malignant neoplasm of other parts of uterus

== ENCOUNTER 2025-06-13 19:57 | Inpatient (IN) | payer OTHER, MEDICAID ==
[~2025-06-13] VITALS: Ht 165.1 cm; Wt 66.2 kg
[~2025-06-13 19:57] MED LIST changes: +HYDROCODONE-AC1 EAC1 PO
[2025-06-13 20:16] VITALS: BP 128/70
[2025-06-13 21:06] LABS: BASO # 0.0 10*3/uL (0.0-0.1); BASO % 0.7 % (0.0-1.0); EOS # 0.0 10*3/uL (0.0-0.4); EOS % 0.0 % (1.0-4.0); MEAN CELL VOLUME 85.8 fl (81.0-99.0); MEAN CORPUSCULAR HGB 24.9 pg (27.0-31.0); MEAN PLATELET VOLUME 8.6 fl (9.6-12.3); MONO # 0.4 10*3/uL (0.1-1.0); MONO % 8.8 % (3.0-9.0); NEUT # 3.4 10*3/uL (2.3-7.9); NEUT % 74.2 % (47.0-73.0); NUCLEATED RED BLOOD CELL 0.0 % (0.0-0.0); NUCLEATED RED BLOOD CELL 0.0 10*3/uL (0.0-0.0); PLATELET COUNT AUTOMATED 232 10*3/uL (130-400); RED CELL DISTRI WIDTH 17.2 % (0-14.5)
[2025-06-13 21:24] LABS: BUN 31.0 mg/dl (9-23)
[2025-06-13 21:45] LABS: BILIRUBIN Negative (Negative); BLOOD Negative (Negative); CLARITY Clear (Clear); COLOR Yellow (Yellow); KETONE Trace (Negative); LEUKO ESTERASE 2+ (Negative); NITRITE Negative (Negative); PH 6.5 (4.5-8.0); SPECIFIC GRAVITY 1.025 (1.001-1.030); UROBILINOGEN 1.0 E.U./dl (0.0-1.0)
[2025-06-13] MEDS ORDERED: ASPIRIN, CHEWABLE 81 MG TAB PO ONE (21:45)
[2025-06-13 21:52] LABS: BACTERIA 2+; WBC 16-20 wbc/hpf (0-5)
[2025-06-13] MEDS ORDERED: FUROSEMIDE 40 MG/4 ML VIAL IV ONE (22:40)
[2025-06-13] MEDS ORDERED: ACETAMINOPHEN 325 MG TAB PO PRN (23:15)
[2025-06-13] MEDS ORDERED: DEXTROSE 50% 25 GM/50 ML VIAL IV PRN (23:15)
[2025-06-14 00:53] VITALS: BP 134/65
[2025-06-14 04:55] VITALS: BP 154/68
[2025-06-14 06:18] LABS: BUN 29.0 mg/dl (9-23); FREE T4 1.56 ng/dl (0.89-1.76); SGPT/ALT 17.0 U/L (5-49)
[2025-06-14 06:19] LABS: BASO # 0.0 10*3/uL (0.0-0.1); BASO % 0.7 % (0.0-1.0); EOS # 0.0 10*3/uL (0.0-0.4); EOS % 0.0 % (1.0-4.0); MEAN CELL VOLUME 84.9 fl (81.0-99.0); MEAN CORPUSCULAR HGB 24.8 pg (27.0-31.0); MEAN PLATELET VOLUME 9.8 fl (9.6-12.3); MONO # 0.4 10*3/uL (0.1-1.0); MONO % 10.0 % (3.0-9.0); NEUT # 3.0 10*3/uL (2.3-7.9); NEUT % 71.7 % (47.0-73.0); NUCLEATED RED BLOOD CELL 0.0 % (0.0-0.0); NUCLEATED RED BLOOD CELL 0.0 10*3/uL (0.0-0.0); PLATELET COUNT AUTOMATED 254 10*3/uL (130-400); RED CELL DISTRI WIDTH 17.3 % (0-14.5)
[2025-06-14] MEDS ORDERED: INSULIN LISPRO 1 UNIT/0.01 ML SQ SCH (07:30)
[2025-06-14] MEDS ORDERED: FUROSEMIDE 20 MG/2 ML VIAL IV SCH (10:00)
[2025-06-14 10:28] VITALS: BP 133/70
[2025-06-14] MEDS ORDERED: Acetaminophen/Hydrocodone 5 MG/325 MG TABLET PO ONE (13:30)
[2025-06-14 14:00] VITALS: BP 133/70
[2025-06-14 15:45] VITALS: BP 123/61
[2025-06-14] MEDS ORDERED: NYSTATIN CREAM 15 GM TUBE T PRN (17:05)
[2025-06-14 20:00] VITALS: BP 137/68
[2025-06-15] VITALS: BP 153/59
[2025-06-15 06:11] LABS: BUN 26.0 mg/dl (9-23); SGPT/ALT 12.0 U/L (5-49)
[2025-06-15 06:22] LABS: BASO # 0.0 10*3/uL (0.0-0.1); BASO % 0.7 % (0.0-1.0); EOS # 0.0 10*3/uL (0.0-0.4); EOS % 0.0 % (1.0-4.0); MEAN CELL VOLUME 85.0 fl (81.0-99.0); MEAN CORPUSCULAR HGB 24.8 pg (27.0-31.0); MEAN PLATELET VOLUME 9.5 fl (9.6-12.3); MONO # 0.4 10*3/uL (0.1-1.0); MONO % 9.7 % (3.0-9.0); NEUT # 2.9 10*3/uL (2.3-7.9); NEUT % 63.8 % (47.0-73.0); NUCLEATED RED BLOOD CELL 0.0 % (0.0-0.0); NUCLEATED RED BLOOD CELL 0.0 10*3/uL (0.0-0.0); PLATELET COUNT AUTOMATED 251 10*3/uL (130-400); RED CELL DISTRI WIDTH 17.0 % (0-14.5)
[2025-06-15 08:00] VITALS: BP 137/67
[2025-06-15 12:00] VITALS: BP 116/54
[2025-06-15 16:00] VITALS: BP 137/59
[2025-06-15 20:00] VITALS: BP 125/52
[2025-06-15 22:00] VITALS: BP 125/52
[2025-06-15] MEDS ORDERED: NYSTATIN 15 GM BOT T SCH (22:25)
[2025-06-16] VITALS: BP 132/64
[2025-06-16 06:53] LABS: BASO # 0.0 10*3/uL (0.0-0.1); BASO % 0.9 % (0.0-1.0); EOS # 0.0 10*3/uL (0.0-0.4); EOS % 0.0 % (1.0-4.0); MEAN CELL VOLUME 83.1 fl (81.0-99.0); MEAN CORPUSCULAR HGB 24.7 pg (27.0-31.0); MEAN PLATELET VOLUME 9.4 fl (9.6-12.3); MONO # 0.4 10*3/uL (0.1-1.0); MONO % 8.3 % (3.0-9.0); NEUT # 2.8 10*3/uL (2.3-7.9); NEUT % 61.9 % (47.0-73.0); NUCLEATED RED BLOOD CELL 0.0 % (0.0-0.0); NUCLEATED RED BLOOD CELL 0.0 10*3/uL (0.0-0.0); PLATELET COUNT AUTOMATED 260 10*3/uL (130-400); RED CELL DISTRI WIDTH 17.1 % (0-14.5)
[2025-06-16 06:59] LABS: BUN 26.0 mg/dl (9-23); SGPT/ALT 10.0 U/L (5-49)
[2025-06-16 08:00] VITALS: BP 133/66
[2025-06-16] MEDS ORDERED: Acetaminophen/Hydrocodone 5 MG/325 MG TABLET PO PRN (09:05)
[2025-06-16] MEDS ORDERED: Acetaminophen/Hydrocodone 5 MG/325 MG TABLET ONE (09:46)
[2025-06-16] MEDS ORDERED: LINACLOTIDE 145 MCG CAP PO SCH (10:00)
[2025-06-16 12:00] VITALS: BP 115/49
[2025-06-16] MEDS ORDERED: Midodrine Hydrochloride 5 MG TAB PO SCH (14:00)
[2025-06-16] MEDS ORDERED: Albuterol Sulf/Ipratropium 3 ML VIAL NEB SCH (14:07)
[2025-06-16 16:00] VITALS: BP 113/48
[2025-06-16 20:00] VITALS: BP 109/43
[2025-06-16] MEDS ORDERED: GABAPENTIN 300 MG CAP PO SCH (22:00)
[2025-06-16] MEDS ORDERED: ATORVASTATIN CALCIUM 80 MG TAB PO SCH (22:00)
[2025-06-17] VITALS: BP 110/60
[2025-06-17 08:00] VITALS: BP 141/62
[2025-06-17] MEDS ORDERED: ASPIRIN ENTERIC COATED 81 MG TAB PO SCH (10:00)
[2025-06-17] MEDS ORDERED: Clopidogrel Hydrogen Sulfate 75 MG TAB PO SCH (10:00)
[2025-06-17] MEDS ORDERED: Cholecalciferol 2,000 UNIT TABLET (50 MCG) PO SCH (10:00)
[2025-06-17] MEDS ORDERED: LASIX20 MG PO (11:26)
[2025-06-17 12:00] VITALS: BP 115/52
[2025-06-17 16:00] VITALS: BP 122/55
[2025-06-17 20:00] VITALS: BP 110/40
[2025-06-18] VITALS: BP 123/62
[2025-06-18 08:00] VITALS: BP 120/74
[2025-06-18] MEDS ORDERED: HYDROCODONE-AC1 EAC1 PO (10:38)
[2025-06-18] MEDS ORDERED: OMNICEF300 MG PO (10:38)
[2025-06-18] MEDS ORDERED: DOXYCYCLINE MO100 MG PO (10:41)
[2025-06-18 11:34] VITALS: BP 136/61
== END 2025-06-18 12:55 | disposition home or self-care (01) | DRG 177 ==
LOC: ED 19:57 → 5E 22:58 → EDHOLD 22:58 → 5E 06-14 15:47
PROVIDERS: Nurse Practitioner Family; Student in an Organized Health Care Education/Training Program; ADMIT Student in an Organized Health Care Education/Training Program; ATTEND Student in an Organized Health Care Education/Training Program
DX: J15.69 Pneumonia due to other Gram-negative bacteria (principal); I50.23 Acute on chronic systolic (congestive) heart failure; E44.0 Moderate protein-calorie malnutrition; N18.4 Chronic kidney disease, stage 4 (severe); N30.00 Acute cystitis without hematuria; I13.0 Hypertensive heart and chronic kidney disease with heart failure and stage 1 through stage 4 chronic kidney disease, or unspecified chronic kidney disease; J91.8 Pleural effusion in other conditions classified elsewhere; Z66 Do not resuscitate; I25.10 Atherosclerotic heart disease of native coronary artery without angina pectoris; E11.22 Type 2 diabetes mellitus with diabetic chronic kidney disease; D50.9 Iron deficiency anemia, unspecified; E11.40 Type 2 diabetes mellitus with diabetic neuropathy, unspecified; E11.65 Type 2 diabetes mellitus with hyperglycemia; E78.5 Hyperlipidemia, unspecified; I25.2 Old myocardial infarction; Z79.899 Other long term (current) drug therapy; Z95.1 Presence of aortocoronary bypass graft; Z79.01 Long term (current) use of anticoagulants; Z79.2 Long term (current) use of antibiotics; Z79.4 Long term (current) use of insulin; Z79.82 Long term (current) use of aspirin; Z90.710 Acquired absence of both cervix and uterus; Z90.49 Acquired absence of other specified parts of digestive tract; Z95.5 Presence of coronary angioplasty implant and graft; Z82.49 Family history of ischemic heart disease and other diseases of the circulatory system; Z84.19 Family history of other disorders of kidney and ureter; Z83.3 Family history of diabetes mellitus; Z71.89 Other specified counseling; Z68.23 Body mass index [BMI] 23.0-23.9, adult

== ENCOUNTER 2025-07-08 14:24 | Emergency (ER) | payer OTHER, MEDICAID ==
[~2025-07-08 14:24] MED LIST changes: +CITALOPRAM20 MG PO; +DOXYCYCLINE MO100 MG PO; +LINEZOLID600 MG PO; +LINZESS 72 MCG PO
[2025-07-08] MEDS ORDERED: Ondansetron Hydrochloride 4 MG/2 ML VIAL IV ONE (14:30)
[2025-07-08 14:47] LABS: BASO # 0.0 10*3/uL (0.0-0.1); BASO % 0.5 % (0.0-1.0); EOS # 0.0 10*3/uL (0.0-0.4); EOS % 0.0 % (1.0-4.0); MEAN CELL VOLUME 84.9 fl (81.0-99.0); MEAN CORPUSCULAR HGB 25.1 pg (27.0-31.0); MEAN PLATELET VOLUME 8.5 fl (9.6-12.3); MONO # 0.4 10*3/uL (0.1-1.0); MONO % 6.0 % (3.0-9.0); NEUT # 5.1 10*3/uL (2.3-7.9); NEUT % 83.1 % (47.0-73.0); NUCLEATED RED BLOOD CELL 0.0 % (0.0-0.0); NUCLEATED RED BLOOD CELL 0.0 10*3/uL (0.0-0.0); PLATELET COUNT AUTOMATED 163 10*3/uL (130-400); RED CELL DISTRI WIDTH 17.0 % (0-14.5)
[2025-07-08 15:01] LABS: ACT PARTIAL THROMBO TIME 27.3 SECONDS (20.0-32.1)
== END 2025-07-08 16:19 ==
LOC: ED 14:24
PROVIDERS: Emergency Medicine
DX: R04.0 Epistaxis (principal); R11.2 Nausea with vomiting, unspecified; Z79.899 Other long term (current) drug therapy; Z79.82 Long term (current) use of aspirin; Z90.49 Acquired absence of other specified parts of digestive tract; Z90.710 Acquired absence of both cervix and uterus; Z95.5 Presence of coronary angioplasty implant and graft

== ENCOUNTER 2025-08-02 17:40 | Emergency (ER) | payer OTHER, MEDICAID ==
[~2025-08-02] VITALS: Ht 165.1 cm; Wt 64.9 kg
[2025-08-02] MEDS ORDERED: IPRATROPIUM BROMIDE 0.5 MG/2.5 ML AMP NEB ONE (19:55)
[2025-08-02 20:08] LABS: BASO # 0.0 10*3/uL (0.0-0.1); BASO % 0.5 % (0.0-1.0); EOS # 0.0 10*3/uL (0.0-0.4); EOS % 0.0 % (1.0-4.0); MEAN CELL VOLUME 82.0 fl (81.0-99.0); MEAN CORPUSCULAR HGB 24.3 pg (27.0-31.0); MEAN PLATELET VOLUME 9.6 fl (9.6-12.3); MONO # 0.3 10*3/uL (0.1-1.0); MONO % 8.6 % (3.0-9.0); NEUT # 2.5 10*3/uL (2.3-7.9); NEUT % 63.1 % (47.0-73.0); NUCLEATED RED BLOOD CELL 0.0 % (0.0-0.0); NUCLEATED RED BLOOD CELL 0.0 10*3/uL (0.0-0.0); PLATELET COUNT AUTOMATED 175 10*3/uL (130-400); RED CELL DISTRI WIDTH 15.5 % (0-14.5)
[2025-08-02 20:27] LABS: BUN 29.0 mg/dl (9-23)
[2025-08-02 20:36] LABS: ACT PARTIAL THROMBO TIME 26.2 SECONDS (20.0-32.1)
== END 2025-08-02 21:51 | disposition home or self-care (01) ==
LOC: ED 17:40
DX: D64.9 Anemia, unspecified (principal); R07.89 Other chest pain; I11.0 Hypertensive heart disease with heart failure; I50.9 Heart failure, unspecified; I25.10 Atherosclerotic heart disease of native coronary artery without angina pectoris; E78.5 Hyperlipidemia, unspecified; E11.9 Type 2 diabetes mellitus without complications; Z90.49 Acquired absence of other specified parts of digestive tract; Z90.710 Acquired absence of both cervix and uterus; Z87.440 Personal history of urinary (tract) infections